=== PATIENT | male | born 1940 | race Caucasian/White ===

== ENCOUNTER → 2016-08-05 | Outpatient (CLI) | payer MEDICARE, OTHER ==
[~2016-08-05] MED LIST: ACETAMINOPHEN PO; ACID CONTROL150 M1 PO; ALBUTEROL 0.5ML INH; ALBUTEROL17 GM INH; ALDACTONE PO; ALDACTONE25 MG PO; ALLER-EASE180 MG PO; ALLERGY RELIEF10 M6 PO; ASPIRIN81 M2 PO; ASPIRIN81 MG PO; ATENOLOL25 MG PO; AZITHROMYCIN250 MG PO; BREO ELLIPTA 11 EACH INH; BREO ELLIPTA 21 EACH INH; CENTRUM COMPLE1 EACH PO; CLOPIDOGREL BIS75 MG PO; CLOPIDOGREL75 MG PO; COLESTIPOL HCL1 G PO; COREG3.125 MG PO; DEXAMETHASONE0.5 MG PO; DEXAMETHASONE0.75 MG PO; DEXAMETHASONE4 MG PO; DIFLUCAN100 MG PO; DIGOX250 MCG PO; DONEPEZIL HCL10 MG PO; DONEPEZIL HCL23 MG PO; ESCITALOPRAM OX10 MG PO; FUROSEMIDE40 MG PO; GLUCOPHAGE500 M1 PO; HUMIBID-LA600 MG PO; KLONOPIN1 MG PO; LEVOTHYROXINE25 MCG PO; LIPITOR40 MG PO; LISINOPRIL5 MG PO; LOPID600 MG PO; LORTAB 10-3251 EACH PO; MEGACE ES625 MG/5 M PO; MEGESTROL625 MG/5 M PO; METFORMIN HCL500 M3 PO; MONTELUKAST SOD10 MG PO; MULTI VITAMIN1 EACH PO; MULTI-VITAMIN1 EAC1 PO; NAMENDA XR28 MG PO; NICOTINE PATCH1 EAC1 TOP; ONDANSETRON HCL4 M1 PO; ONDANSETRON4 MG/TAB PO; PREDNISONE2.5 MG PO; PREDNISONE5 MG PO; RANITIDINE HCL150 M1 PO; SPIRIVA18 MCG INH; TENORMIN25 MG PO; TRIPLE OMEGA C400 MG PO; TYLENOL325 M1 PO; ZYRTEC10 M2 PO
--- NOTE | ~2016-08-05 | XA91 ---
[facility] A Service of [facility] & [facility] RADIOLOGY TEXT RESULTS PATIENT: GIANCARLO MEJIA LOCATION: CIVR : 41 UNIT #: [id number] AGE: [address]: Hossein Mednes MD SEX: M ORDER DR: [id number] [place] [id number] [facility]. [place], [place] [address] [id number] MR#: [id number] Acc #: [id number] NAME: GIANCARLO MEJIA : 1940 SEX: M STUDY DATE/TIME: 08/05/2016 8:48 UNIT: CIVR ROOM: STUDY DESCRIPTION: XA CVC Tunneled W Port Attending Physician: Hossein Mendes M.D. Ordering Physician: Hossein Mendes M.D. Primary Care Physician: Jon Damon M.D. MEDICAL IMAGING REPORT This report is preliminary unless electronic signature is present PROCEDURE Ultrasound and fluoroscopically guided placement of a chest port. INDICATIONS 75-year-old male with history of metastatic lung cancer. Chest port placement requested for chemotherapy. The fluoro time is 0.2 minutes. Reference air kerma 3 mGy. MEDICATIONS: 2 mg of Versed administered IV and 75 mcg of Fentanyl administered IV. Conscious sedation time monitored by appropriately credentialed radiology nursing staff. 1 g of Cefazolin was administered for antibiotic prophylaxis. The risks, benefits and alternative of the procedure were discussed with the patient and informed consent was obtained. In the procedure room a time-out was performed confirming correct patient and procedure. All elements maximum sterile-barrier technique utilized according guidelines appropriate for the procedure. TECHNIQUE/FINDINGS Ultrasound of the right internal jugular vein was performed. It was patent and compressible and images saved. Next, using full standard sterile barrier technique including sterile caps, gowns, gloves, mass, drapes, 2% Chlorhexidine for cutaneous anti sepsis, and hand hygiene the right internal jugular vein was punctured using a 21-gauge micropuncture needle. Next, under fluoroscopic guidance a peel-away sheath was advanced into the SVC. Next, a similar incision was made below the right clavicle. A subcutaneous pocket was created. The port was placed in the pocket and the catheter tubing was tunneled underneath the skin through the jugular dermatotomy site. The tubing was measured and cut to length and advanced through the sheath. The tip of the catheter is located at [facility]. [facility] A Service of [facility] RADIOLOGY TEXT RESULTS PATIENT: GIANCARLO MEJIA LOCATION: CIVR : 41 UNIT #: [id number] AGE: [address]: Hossein Mendes MD SEX: M ORDER DR: the cavoatrial junction in good position. A spot image was taken. The port pocket was closed using 3-0 Vicryl and Dermabond. The jugular dermatotomy site was closed using Dermabond. The port was flushed with heparinized saline. Patient tolerated the procedure well without immediate complications. IMPRESSION Technically successful ultrasound and fluoroscopically guided placement of a right internal jugular venous chest port. Dictated by... Tyrone Damon M.D. THIS IS AN ELECTRONICALLY VERIFIED REPORT Tyrone Damon M.D. at 08/05/2016 4:57 PM DEVIN/sophia TD: 08/05/2016 13:13 JOB #: [id number] MEDICAL IMAGING REPORT COPY
[2016-08-05 07:51] LABS: HEMATOCRIT 35.8 % (38.0-50.0); HEMOGLOBIN 12.1 gm/dL (13.0-16.0); MEAN CORPUSCULAR HGB CONC 33.6 g/dL (30-36); MEAN PLATELET VOLUME 7.6 FL (6.5-11.5); RED BLOOD COUNT 3.66 X10e (3.90-5.60); RED CELL DISTRIBUTION WIDTH 14.1 % (11.0-15.5); WHITE BLOOD COUNT 10.4 X10e3 (4.0-10.5)
[2016-08-05 08:04] LABS: INR 0.9; PARTIAL THROMBOPLASTIN TIME 25.2 SECONDS (23.5-31.3); PROTHROMBIN TIME (PATIENT) 9.7 SECONDS (9.6-11.5)
== END | disposition home or self-care (01) ==
LOC: CIVR 07:17
PROVIDERS: Internal Medicine Hematology & Oncology
PROC: 0JH63XZ Insertion of Tunneled Vascular Access Device into Chest Subcutaneous Tissue and Fascia, Percutaneous Approach (ICD-10-PCS; principal; 2016-08-05)
DX: Z45.2 Encounter for adjustment and management of vascular access device (principal); R91.1 Solitary pulmonary nodule; C34.11 Malignant neoplasm of upper lobe, right bronchus or lung; C79.71 Secondary malignant neoplasm of right adrenal gland; C79.31 Secondary malignant neoplasm of brain; I10 Essential (primary) hypertension; E11.9 Type 2 diabetes mellitus without complications; Z79.84 Long term (current) use of oral hypoglycemic drugs; G30.9 Alzheimer's disease, unspecified; F02.80 Dementia in other diseases classified elsewhere, unspecified severity, without behavioral disturbance, psychotic disturbance, mood disturbance, and anxiety; Z79.899 Other long term (current) drug therapy; I25.10 Atherosclerotic heart disease of native coronary artery without angina pectoris; Z95.1 Presence of aortocoronary bypass graft; Z98.61 Coronary angioplasty status; F17.200 Nicotine dependence, unspecified, uncomplicated; Z80.1 Family history of malignant neoplasm of trachea, bronchus and lung; Z80.0 Family history of malignant neoplasm of digestive organs
CPT/HCPCS: 36415; 76937; 77001; 82947; 85027; 85610; 85730; C1788; J0690; J1642; J2250; J3010

== ENCOUNTER → 2016-08-19 | Outpatient (CLI) | payer MEDICARE, OTHER ==
--- NOTE | ~2016-08-19 | US85 ---
[facility] A Service of [facility] RADIOLOGY TEXT RESULTS PATIENT: GIANCARLO MEJIA LOCATION: SNIV : 41 UNIT #: [id number] AGE: [address]: Hossein Mendes MD SEX: M ORDER DR: [id number] [place] [id number] P MR#: [id number] Acc #: [id number] NAME: GIANCARLO MEJIA : 1940 SEX: M STUDY DATE/TIME: 08/19/2016 12:50 UNIT: SNIV ROOM: STUDY DESCRIPTION: [facility] Attending Physician: Hossein Mendes M.D. Referring Physician: Hossein Mendes M.D. Ordering Physician: Hossein Mendes M.D. Primary Care Physician: Jon Damon M.D. MEDICAL IMAGING REPORT This report is preliminary unless electronic signature is present. EXAM Right leg vein Doppler ultrasound, 08/19. INDICATION Right flank pain for the last 1.5 weeks. TECHNIQUE Venous ultrasound examination of the right lower extremity was performed using grayscale, spectral Doppler and color flow Doppler imaging. FINDINGS The examination is negative. There is no evidence of right lower extremity deep venous thrombus from the groin to the lower calf. Visualized greater saphenous vein is also patent. IMPRESSION Negative examination. No evidence of right lower extremity deep venous thrombosis. Dictated by... Jon Arevalo Jr., M.D. THIS IS AN ELECTRONICALLY VERIFIED REPORT Jon Arevalo Jr., M.D. at 08/19/2016 4:49 PM WESTON/alexi TD: 08/19/2016 14:56 JOB #: [id number] MEDICAL IMAGING REPORT [facility] A Service of [facility] RADIOLOGY TEXT RESULTS PATIENT: GIANCARLO MEJIA LOCATION: SNIV : 41 UNIT #: [id number] AGE: [address]: Hossein Mendes MD SEX: M ORDER DR: Page 1 of 1
== END | disposition home or self-care (01) ==
LOC: SNIV 12:36
DX: M79.661 Pain in right lower leg (principal); C79.31 Secondary malignant neoplasm of brain; C34.11 Malignant neoplasm of upper lobe, right bronchus or lung; C79.71 Secondary malignant neoplasm of right adrenal gland; R91.1 Solitary pulmonary nodule
CPT/HCPCS: 93971

== ENCOUNTER 2016-08-26 16:30 | Inpatient (IN) | payer MEDICARE, OTHER ==
--- NOTE | ~2016-08-26 | HP ---
Unit #: [id number] #: [id number] Patient: GIANCARLO MEJIA [id number] [address] [place], [place] [address] [id number] MR#: [id number] NAME: GIANCARLO MEJIA ROOM: 236 Age: 75 Sex: M Admission Date: 08/26/2016 : 1940 Attending Physician: Elias Archuleta M.D. Primary Care Physician: Jon Damon M.D. HISTORY AND PHYSICAL CHIEF COMPLAINT Weakness, nausea, poor appetite x1 week HISTORY OF PRESENT ILLNESS Patient is a 75-year-old male recently diagnosed with lung cancer about six weeks ago, under the care of Dr. Mendes. He started EM cycles of radiation treatment and chemotherapy. He was seen today at Dr. Mendes's office who directly admitted him to the hospital after some IV rehydration. Dr. Mendes felt that patient was intravascularly depleted and may need to be rehydrated a little more. The patient denies any chest pain or headache or shortness of breath or difficulty breathing. He admits to nausea but no vomiting, states that he has lost his appetite and his taste buds. REVIEW OF SYSTEMS A complete 10-point review of systems has been done and pertinent positives noted above. PAST MEDICAL HISTORY Recent diagnosis of lung cancer, previous history of colon cancer about five years ago, status post partial colectomy, coronary artery disease, diabetes mellitus type 2. ALLERGIES No known drug allergies. PAST SURGICAL HISTORY Coronary artery bypass graft, partial colectomy and port placement. FAMILY HISTORY Family history is negative. MEDICATIONS Medications are not reconciled at this time but include Tylenol Arthritis two tablets b.i.d., clonidine, Plavix, Vytorin, ranitidine, spironolactone, aspirin, Lasix, metformin and Zyrtec. PHYSICAL EXAMINATION GENERAL: On examination he was comfortable, not in distress. VITAL SIGNS: Blood pressure 123/67, pulse 91, respiratory rate 18, temperature 98.3. HEENT: Pupils are equal and reactive to light and accommodation. He had some moist mucous membranes. Unit #: [id number] #: [id number] Patient: GIANCARLO MEJIA NECK: Neck was supple without thyroid. CHEST: Reduced breath sounds of lung bases posteriorly. CARDIOVASCULAR SYSTEM: First and second heart sounds only. ABDOMEN: Full. Moving with respiration. Soft. No palpable organomegaly. CENTRAL NERVOUS SYSTEM EXAM: Alert and oriented x3. Moved all the limbs spontaneously. Cranial nerves II-XII grossly intact. SKIN: Warm and dry with no rashes. LYMPHATIC SYSTEM: I could not appreciate any lymphadenopathy. DIAGNOSTIC STUDIES LABORATORY: He had chemistries, glucose of 160, BUN and creatinine 23 and 0.8, sodium and potassium 132 and 3.8, chloride of 98. He had CBC, WBC 5.7, hemoglobin and hematocrit 11.0 and 32.9, with a platelet count of 157. Urinalysis: Specific gravity 1.022, urobilinogen 1.0. ASSESSMENT AND PLAN 1. Mild dehydration: Will rehydrate patient with D5 half normal saline at 100 mL per hour. Encourage him to eat. Put him on Accu-Cheks q.a.c. and q.h.s. Put him on a low dose sliding scale at this time. 2. Diabetes mellitus type 2: Put him on Accu-Chek q.a.c. and q.h.s. Will see what his sugars trend and correct them as we go along. 3. Lung cancer: He is under the care of Dr. Mendes. Will consult with Dr. Mendes. 4. Coronary artery disease. This is currently stable at this time. No issues at this time. 5. GI prophylaxis/gastroesophageal reflux disease: Put him on Protonix 40 mg p.o. daily. Dictated by Susan Hogue/roc TD: 08/26/2016 19:38 JOB #: [id number] HISTORY AND PHYSICAL Page 1 of 1 X Elias Archuleta MD X HISTORY AND PHYSICAL
--- NOTE | ~2016-08-26 | A ---
[facility] Nutrition Therapy DATE: 08/27/16 Patient: GIANCARLO MEJIA Physician: THANH Address: [facility] VICENTA VILLARREAL Room/Bed: [address] [place] [address], Zip: [place] [address] Admit Date: 08/26/16 Date of : 41 Height: 6 2 Weight: 174 79.1 NUTRITIONAL ASSESSMENT: REASON: Consult 75 yo male admitted for dehydration, weakness, nausea, poor appetite x 1 wk PMH: lung cancer, CAD, DM, h/o colon cancer Anthropometrics: Ht: 6'2" Wt: 79.1 kg (174#) BMI: 22.3 Labs: Na+ 130, Glu 231, Ca++ 8.2, POC 258 Meds: D5%, Protonix, Novolog I/O & Bowel function: 480/626, last BM 08/27 Skin Integrity: Scar (mid chest), no edema noted Estimated Nutrition Needs: Increased d/t chemoradiation, wt loss Assessment: Chart reviewed, events noted. Pt recently diagnosed with lung cancer in 2016. Pt is currently receiving chemotherapy and radiation. RD internship visited with pt and pt's family. RD internship gave written and verbal oncology diet education. Pt's family reported recent wt loss of ~6# in 4 days. Pt reports taste changes, as pt states "everything tastes like sugar". Pt reported very little PO intake d/t taste changes and nausea. RD internship encouraged adequate intake and provided high-calorie, high-protein foods. RD internship discussed importance of calorie, protien, and fluid during treatment. RD internship encouraged Pepe smith d/t elevated blood glucose levels, pt agreed. Pt and pt's family asked questions, RD internship responded appropriately. See recommendations below. Dx: Inadequate protein-energy intake RT current clinical condition, taste changes, nausea AEB wt loss, pt and pt's family report above. Intervention: 1. Glucerna shakes QID 2. Consistent carb diet Monitoring, Evaluation and Goals: 1. PO intake; consume >75% of meals and supplements 2. Weight; prevent unintentional weight loss, promote weight gain 3. Labs; WNL: gluc [facility] Nutrition Therapy DATE: 08/27/16 Patient: GIANCARLO MEJIA Physician: THANH Address: [address] [place] [address] Room/Bed: [address] [place] [address], Zip: [place] [address] Admit Date: 08/26/16 Date of : [birth year] Height: 6 2 Weight: 174 79.1 Recommendations: 1. Order chocolate Glucerna shakes QID, d/c chocolate Ensure shakes QID. 2. Appreciate family and staff to encourage adequate intake. 3. Reconsult RD if further diet education requested. Pt is at a moderate nutritional risk. RD will f/u per protocol. Respectfully, Sarah Lane, [place] Ora Gonzalez MS, RD, LD [employer] and Nutrition[facility] Services [facility] cc: client file
--- NOTE | ~2016-08-26 | CO ---
Unit #: [id number] #: [id number] Patient: GIANCARLO MEJIA [id number] [address] [place], [place] [address] [id number] I MR#: [id number] NAME: GIANCARLO MEJIA ROOM: 236 Age: 75 Sex: M Admission Date: 08/26/2016 : 1940 Attending Physician: Elias Archuleta M.D. Primary Care Physician: Jon Damon M.D. Consultation Date: 08/27/2016 CONSULTATION REPORT REQUESTING PHYSICIAN Elias Archuleta M.D. REASON FOR CONSULTATION Metastatic lung cancer, dehydration, nausea, vomiting. HISTORY OF PRESENT ILLNESS Mr. Giancarlo Mejia is 75 years old with a history of metastatic nonsmall cell lung cancer, who underwent his first cycle of chemotherapy with carboplatin and Abraxane on August 21, 2016, following which he lost his appetite. Had eaten very poorly for five days and was seen in the office on August 26, 2016 and was clinically found to be dehydrated, very nauseous, and hospitalization was recommended. I spoke to Dr. Archuleta who graciously agreed to admit him. Mr. Mejia tells me that with IV fluids, nausea medications he feels slightly better but still extremely tired without much of an appetite. PAST MEDICAL HISTORY 1. History of coronary artery disease with angioplasty in 2004, followed by bypass surgery in 2007. 2. Type 2 diabetes. 3. Hypertension. 4. Alzheimer type dementia. 5. He was diagnosed with lung cancer on a screening CT scan on June 19, 2014, which revealed a 2.2 x 2.3 cm nodule in the right upper lobe near the hilum with multiple enlarged lymph nodes including right paratracheal and AP window nodes. PET CT scan revealed PET avid nodules on the parotid gland with MRI of the brain with at least 10 brain metastases. He underwent whole brain radiation therapy to the brain for which he was fatigued, followed there after by initiation of chemotherapy as mentioned above. PAST SURGICAL HISTORY 1. Colon resection. 2. Coronary artery bypass surgery. FAMILY HISTORY Gastrointestinal cancer in mother and now mother with lung cancer. SOCIAL HISTORY A 50-pack a day smoker, who still smokes a few cigarettes a day. Does not drink any alcohol. He is , lives with his and his two daughters. Unit #: [id number] #: [id number] Patient: GIANCARLO MEJIA REVIEW OF SYSTEMS A 14-point review of systems taken. CONSTITUTIONAL: Fatigue, weakness, decreased appetite. EYES: Negative. EARS, NOSE, MOUTH, THROAT: Negative. CARDIOVASCULAR: Negative. RESPIRATORY: Negative. GASTROINTESTINAL: Nausea and vomiting. No constipation. GENITOURINARY: Negative. NEUROLOGIC: Forgetfulness as manifestation of his dementia. PSYCHIATRIC: Negative. ENDOCRINE: Diabetic. ALLERGY/LYMPHATIC: Negative. SKIN: Negative. PHYSICAL EXAMINATION GENERAL: He is a pleasant elderly man in no distress. Awake, alert, oriented x3. VITAL SIGNS: Temperature 98.9, pulse rate 82, respiratory rate 18, blood pressure 133/55, O2 saturations 98% on room air. HEENT: Shows pupils equal, react well to light. Mild pallor. No icterus. Mucous membranes are dry. NECK: No adenopathy, JVD, thyromegaly. CARDIOVASCULAR: First and second heart sounds are heard. Regular with no murmurs, gallops, or rubs. LUNGS: Chest expansion symmetric. Bilateral equal air entry. Normal breath sounds. ABDOMEN: Soft, nontender. Bowel sounds are active. EXTREMITIES: Warm with good pulses. No edema, cyanosis, clubbing. NEUROLOGIC: He is awake, alert, oriented x3 without any focal findings. SKIN: Negative. LYMPHATIC: Negative. PSYCHIATRIC: Normal affect. DIAGNOSTIC STUDIES LABORATORY: CBC at admission showed a white count of 5.7, hemoglobin 11, platelet count 157,000. Complete metabolic panel shows sodium of 132, BUN 23, creatinine 0.8, glucose 160. UA is dark yellow with a specific gravity of 1.022, pH 6.5. ASSESSMENT AND PLAN Mr. Giancarlo Mejia is 75 years old with a history of coronary artery disease, type 2 diabetes mellitus with metastatic nonsmall cell lung cancer including brain metastasis admitted with anorexia, nausea, vomiting, and dehydration from the office. He is now marginally better with an improving hydration status but still decreased appetite and nausea on and off. I discussed with Mr. Mejia that plan will be to continue IV fluids, monitor electrolytes, control his blood sugars with plans to discharge home in the next one to two days. Discussed that we will hold his chemotherapy this week because of side effects and plan to give him his next weekly chemotherapy next week based upon symptoms and improvement by that point. 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 Thank you for allowing me to participate in his care and I will follow with you. Unit #: [id number] #: [id number] Patient: GIANCARLO MEJIA Dictated by... Susan Hewitt/margarita TD: 08/28/2016 15:39 JOB #: [id number] CONSULTATION REPORT Page 1 of 1 X Hossein Mendes MD X CONSULTATION REPORT
--- NOTE | ~2016-08-26 | DS ---
Unit #: [id number] #: [id number] Patient: GIANCARLO MEJIA [id number] [place], [place] [address] [id number] I MR#: [id number] NAME: GIANCARLO MEJIA ROOM: 236 Age: 75 Sex: M Admission Date: 08/26/2016 : 1940 Discharge Date: Attending Physician: Elias Archuleta M.D. Primary Care Physician: Jon Damon M.D. DISCHARGE SUMMARY REVISED REPORT FINAL DIAGNOSIS Mild dehydration. SECONDARY DIAGNOSES 1. Lung cancer. 2. Diabetes mellitus type 2. CONSULT Dr. Mendes. HOSPITAL COURSE The patient is a pleasant 75-year-old male with history of lung cancer, who is status post radiation treatment and got some chemotherapy. He was seen at Dr. Mendes's office and directly admitted on account of concerns for dehydration. He was rehydrated and his appetite has improved somewhat. He was evaluated and found suitable and stable for discharge and will be discharged in stable condition for outpatient followup with his PCP and primary oncologist, Dr. Mendes. DISCHARGE MEDICATIONS 1. Zofran ODT 4 mg p.o. q.4 hourly as needed. 2. Tylenol over the counter 650 mg p.o. q.4 hourly as needed. 3. Dexamethasone one tablet p.o. four times a day. 4. Glucophage 500 mcg p.o. daily. 5. Zyrtec 10 mg p.o. daily. 6. Colestipol 1 g p.o. b.i.d. as needed for diarrhea. 7. Klonopin 1 mg p.o. b.i.d. per home dose. 8. Coreg 3.125 mg p.o. b.i.d. 9. Atenolol 25 mg p.o. daily. 10. Digoxin 250 mg every morning. 11. Aricept 10 mg p.o. daily. 12. Breo Ellipta 100/25 mcg inhalation one inhalation daily. 13. Lasix 40 mg p.o. daily. 14. Lipitor 40 mg p.o. at bedtime. 15. Humibid LA 600 mg p.o. twice daily. 16. Zestril 5 mg p.o. every morning. 17. Ranitidine 150 mg p.o. b.i.d. 18. Multivitamin one tablet p.o. daily. 19. Aspirin 81 mg p.o. daily. 20. Plavix 75 mg p.o. daily. 21. Spironolactone 25 mg every morning. 22. Levothyroxine sodium 12.5 mcg every morning. Unit #: [id number] #: [id number] Patient: GIANCARLO MEJIA FOLLOWUP 1. He is scheduled to follow up with PCP in next three to five days. 2. Scheduled to follow up with Dr. Mendes in about one to two weeks, was scheduled by Dr. Mendes. 3. Will discharge him home with home health. Time spent coordinating discharge about 26 minutes. Dictated by... Susan Hogue TD: 08/28/2016 10:36 JOB #: [id number] DISCHARGE SUMMARY Page 1 of 1 X Elias Archuleta MD DISCHARGE SUMMARY
[~2016-08-26 16:30] MED LIST changes: -ACETAMINOPHEN PO; -ACID CONTROL150 M1 PO; -ALBUTEROL 0.5ML INH; -ALBUTEROL17 GM INH; -ALDACTONE PO; -ALLER-EASE180 MG PO; -ALLERGY RELIEF10 M6 PO; -ASPIRIN81 MG PO; -AZITHROMYCIN250 MG PO; -BREO ELLIPTA 11 EACH INH; -BREO ELLIPTA 21 EACH INH; -CENTRUM COMPLE1 EACH PO; -CLOPIDOGREL BIS75 MG PO; -COLESTIPOL HCL1 G PO; -COREG3.125 MG PO; -DEXAMETHASONE0.75 MG PO; -DEXAMETHASONE4 MG PO; -DIFLUCAN100 MG PO; -DONEPEZIL HCL10 MG PO; -ESCITALOPRAM OX10 MG PO; -GLUCOPHAGE500 M1 PO; -HUMIBID-LA600 MG PO; -LOPID600 MG PO; -LORTAB 10-3251 EACH PO; -MEGACE ES625 MG/5 M PO; -MEGESTROL625 MG/5 M PO; -METFORMIN HCL500 M3 PO; -MONTELUKAST SOD10 MG PO; -MULTI VITAMIN1 EACH PO; -NAMENDA XR28 MG PO; -NICOTINE PATCH1 EAC1 TOP; -ONDANSETRON HCL4 M1 PO; -ONDANSETRON4 MG/TAB PO; -PREDNISONE2.5 MG PO; -PREDNISONE5 MG PO; -SPIRIVA18 MCG INH; -TENORMIN25 MG PO; -TRIPLE OMEGA C400 MG PO; -TYLENOL325 M1 PO
[2016-08-26 17:19] LABS: HEMATOCRIT 32.9 % (38.0-50.0); MEAN CELL VOLUME 97.3 FL (83-96); MEAN CORPUSCULAR HEMOGLOBIN 32.7 PG (28-34); MEAN CORPUSCULAR HGB CONC 33.6 g/dL (30-36); MEAN PLATELET VOLUME 8.2 FL (6.5-11.5); RED BLOOD COUNT 3.38 X10e (3.90-5.60); RED CELL DISTRIBUTION WIDTH 13.6 % (11.0-15.5); WHITE BLOOD COUNT 5.7 X10e3 (4.0-10.5)
[2016-08-26 17:42] LABS: BUN/CREATININE RATIO 28.75; CALCIUM SERUM 8.5 mg/dL (8.4-10.2); CREATININE SERUM 0.8 mg/dL (0.6-1.4); POTASSIUM 3.8 mmol/L (3.5-5.1)
[2016-08-26 18:57] LABS: URINE APPEARANCE CLEAR; URINE BILIRUBIN NEG (NEG); URINE BLOOD NEG (NEG); URINE COLOR DK YELLOW; URINE GLUCOSE NEG (NEG); URINE KETONE NEG (NEG); URINE LEUKOCYTE ESTERASE NEG (NEG); URINE NITRATE NEG (NEG); URINE PH 6.5 (5-8); URINE PROTEIN NEG (NEG); URINE SPECIFIC GRAVITY 1.022 (1.003-1.035)
[2016-08-27] MEDS ORDERED: COLESTIPOL HCL1 G PO (10:54)
[2016-08-27] MEDS ORDERED: FUROSEMIDE40 MG PO (10:55)
[2016-08-27] MEDS ORDERED: GLUCOPHAGE500 M1 PO (10:56)
[2016-08-27] MEDS ORDERED: BREO ELLIPTA 11 EACH INH (10:58)
[2016-08-27] MEDS ORDERED: DEXAMETHASONE0.75 MG PO (10:59)
[2016-08-27] MEDS ORDERED: ONDANSETRON4 MG/TAB PO (11:28)
[2016-08-27] MEDS ORDERED: COREG3.125 MG PO (11:29)
[2016-08-27 14:27] LABS: HEMATOCRIT 27.7 % (38.0-50.0); HEMOGLOBIN 9.7 gm/dL (13.0-16.0); MEAN CORPUSCULAR HEMOGLOBIN 33.5 PG (28-34); MEAN PLATELET VOLUME 7.8 FL (6.5-11.5); RED BLOOD COUNT 2.89 X10e (3.90-5.60); RED CELL DISTRIBUTION WIDTH 13.1 % (11.0-15.5); WHITE BLOOD COUNT 3.9 X10e3 (4.0-10.5)
[2016-08-27 15:00] LABS: CALCIUM SERUM 8.2 mg/dL (8.4-10.2); GLOM FILT RATE Estimated 73.8 mL/min (>60)
[2016-08-28] MEDS ORDERED: ACETAMINOPHEN PO (11:08)
[2016-08-28] MEDS ORDERED: HUMIBID-LA600 MG PO (11:11)
[2016-09-24] MEDS ORDERED: BREO ELLIPTA 21 EACH INH (11:10)
[2016-09-24] MEDS ORDERED: DONEPEZIL HCL10 MG PO (11:12)
[2016-09-24] MEDS ORDERED: ALDACTONE PO (11:13)
[2016-09-24] MEDS ORDERED: RANITIDINE HCL150 M1 PO (11:14)
[2016-09-24] MEDS ORDERED: CLOPIDOGREL75 MG PO (11:15)
[2016-09-24] MEDS ORDERED: LEVOTHYROXINE25 MCG PO (11:16)
[2016-09-24] MEDS ORDERED: ALBUTEROL 0.5ML INH (11:19)
[2016-09-24] MEDS ORDERED: AZITHROMYCIN250 MG PO (11:20)
[2016-09-24] MEDS ORDERED: ALLER-EASE180 MG PO (11:21)
[2016-09-24] MEDS ORDERED: ESCITALOPRAM OX10 MG PO (11:21)
[2016-09-24] MEDS ORDERED: MEGESTROL625 MG/5 M PO (11:22)
[2016-09-24] MEDS ORDERED: LOPID600 MG PO (11:22)
[2016-09-24] MEDS ORDERED: MONTELUKAST SOD10 MG PO (11:23)
[2016-09-24] MEDS ORDERED: NAMENDA XR28 MG PO (11:25)
[2016-09-24] MEDS ORDERED: TRIPLE OMEGA C400 MG PO (11:26)
[2016-09-24] MEDS ORDERED: SPIRIVA18 MCG INH (11:26)
[2016-09-24] MEDS ORDERED: NICOTINE PATCH1 EAC1 TOP (11:26)
[2016-09-24] MEDS ORDERED: ALBUTEROL17 GM INH (11:27)
== END 2016-08-28 12:05 | disposition home health service (06) | DRG 641 ==
LOC: C2A 16:30
PROVIDERS: Family Medicine; Nurse Practitioner
DX: E86.0 Dehydration (principal); D61.818 Other pancytopenia; C79.51 Secondary malignant neoplasm of bone; C22.9 Malignant neoplasm of liver, not specified as primary or secondary; E11.9 Type 2 diabetes mellitus without complications; G30.9 Alzheimer's disease, unspecified; F02.81 Dementia in other diseases classified elsewhere, unspecified severity, with behavioral disturbance; F17.213 Nicotine dependence, cigarettes, with withdrawal; I25.10 Atherosclerotic heart disease of native coronary artery without angina pectoris; Z79.84 Long term (current) use of oral hypoglycemic drugs; Z79.82 Long term (current) use of aspirin; Z79.02 Long term (current) use of antithrombotics/antiplatelets; Z95.5 Presence of coronary angioplasty implant and graft; Z85.038 Personal history of other malignant neoplasm of large intestine
CPT/HCPCS: 80048; 81003; 82947; 85027; 94640; 94760; J1650; J1815

== ENCOUNTER → 2016-09-16 | Outpatient (CLI) | payer MEDICARE, OTHER ==
[~2016-09-16] MED LIST changes: +ACETAMINOPHEN PO; +ACID CONTROL150 M1 PO; +ALBUTEROL 0.5ML INH; +ALBUTEROL17 GM INH; +ALDACTONE PO; +ALLER-EASE180 MG PO; +ALLERGY RELIEF10 M6 PO; +ASPIRIN81 MG PO; +AZITHROMYCIN250 MG PO; +BREO ELLIPTA 11 EACH INH; +BREO ELLIPTA 21 EACH INH; +CENTRUM COMPLE1 EACH PO; +CLOPIDOGREL BIS75 MG PO; +COLESTIPOL HCL1 G PO; +COREG3.125 MG PO; +DEXAMETHASONE0.75 MG PO; +DEXAMETHASONE4 MG PO; +DIFLUCAN100 MG PO; +DONEPEZIL HCL10 MG PO; +ESCITALOPRAM OX10 MG PO; +GLUCOPHAGE500 M1 PO; +HUMIBID-LA600 MG PO; +LOPID600 MG PO; +LORTAB 10-3251 EACH PO; +MEGACE ES625 MG/5 M PO; +MEGESTROL625 MG/5 M PO; +METFORMIN HCL500 M3 PO; +MONTELUKAST SOD10 MG PO; +MULTI VITAMIN1 EACH PO; +NAMENDA XR28 MG PO; +NICOTINE PATCH1 EAC1 TOP; +ONDANSETRON HCL4 M1 PO; +ONDANSETRON4 MG/TAB PO; +PREDNISONE2.5 MG PO; +PREDNISONE5 MG PO; +SPIRIVA18 MCG INH; +TENORMIN25 MG PO; +TRIPLE OMEGA C400 MG PO; +TYLENOL325 M1 PO
--- NOTE | ~2016-09-16 | CT2 ---
[facility] A Service of [facility] & [facility] RADIOLOGY TEXT RESULTS PATIENT: GIANCARLO MEJIA LOCATION: CCAT : 41 UNIT #: [id number] AGE: [address]: Hossein Mendes MD SEX: M ORDER DR: [id number] [facility] [address] [facility]. [place], [place] [address] [id number] O MR#: [id number] Acc #: [id number] NAME: GIANCARLO MEJIA : 1940 SEX: M STUDY DATE/TIME: 09/16/2016 13:03 UNIT: CCAT ROOM: STUDY DESCRIPTION: CT Abd and Pelv W Cont Attending Physician: Hossein Mendes M.D. Referring Physician: Hossein Mendes M.D. Ordering Physician: Hossein Mendes M.D. Primary Care Physician: Jon Damon M.D. MEDICAL IMAGING REPORT This report is preliminary unless electronic signature is present EXAM CT abdomen and pelvis with contrast, 09/16/2016. HISTORY 75-year-old male with lung cancer, with metastatic disease to the right adrenal gland and brain. Observation for metastatic disease. Restaging. History of prior colon surgery. Diabetes. Hypertension. Cardiac disease. COMPARISON PET/CT 06/27/2016. PROCEDURE 5-mm axial images from the lung bases through the lesser trochanters after intravenous and enteric contrast administration. Sagittal coronal reformatted images were obtained. FINDINGS 3.0 x 2.0 cm heterogeneous right adrenal thickening consistent with appearance of metastatic disease, not thought to be significantly changed. No focal liver lesions are identified. Small gallstones are present without pericholecystic inflammation or biliary ductal dilation. There is a complex cystic lesion seen in the uncinate process of the spleen, measuring 4 mm AP x 1.6 cm craniocaudal x 2.2 cm transverse, best depicted on coronal reformatted images. There is mild prominence of the ventral pancreatic duct measuring up to 4 mm, but no obstructing etiology is seen. The dorsal duct caliber is within normal limits. Findings suggestive of pancreatic divisum configuration. No pathologic retroperitoneal or mesenteric adenopathy is seen. There is no ascites. Moderate atherosclerotic plaquing is seen within the infrarenal abdominal aorta. The infrarenal abdominal aorta is aneurysmal measuring nearly 3.[address] [facility] A Service of [facility] RADIOLOGY TEXT RESULTS PATIENT: GIANCARLO MEJIA LOCATION: [facility] : 41 UNIT #: [id number] AGE: [address]: Hossein Mendes MD SEX: M ORDER DR: ricky, not thought to be significant changed. Advanced calcific atherosclerosis in seen in the bilateral common iliac arteries. Mild irregular plaquing in the left external iliac artery. PELVIS: Urinary bladder, prostate, and rectum are within normal limits. Degenerative disc and endplate changes are present at L5-S1, but no suspicious osteolytic or osteoblastic abnormalities are identified. IMPRESSION 1. Abnormal right adrenal gland heterogeneous thickening, consistent with metastatic disease. This lesion was hypermetabolic on the previous PET/CT of 06/27/2016. It is not thought to be significant changed in size or morphology since 06/27/2016. 2. There is a complex cystic lesion within the uncinate process of the pancreas with questionable pancreatic divisum configuration. This lesion is best depicted on the coronal reformatted images. Based upon statistics, benign etiologies such at chronic pseudocyst or other benign pancreatic cystic neoplasm would be favored, and no abnormal FDG uptake was seen in this location on previous PET/CT. This can be further evaluated with CT abdomen without and with IV contrast, pancreatic protocol, it would aid in the patient's clinical management. Alternately, short-term CT surveillance imaging would be recommended. 3. Uncomplicated cholelithiasis. 4. Stable 3.5 cm infrarenal abdominal aneurysm. 5. CT chest performed on this same day has been dictated separately. Dictated by... Mar Armendariz M.D. THIS IS AN ELECTRONICALLY VERIFIED REPORT Mar Armendariz M.D. at 09/18/2016 8:31 AM Ann-Marie TD: 09/16/2016 16:35 JOB #: [id number] MEDICAL IMAGING REPORT Page 1 of 1 COPY
--- NOTE | ~2016-09-16 | CT55 ---
[facility] A Service of [facility] & [facility] RADIOLOGY TEXT RESULTS PATIENT: GIANCARLO MEJIA LOCATION: [facility] : 41 UNIT #: [id number] AGE: [address]: Hossein Mendes MD SEX: M ORDER DR: [id number] [facility] [address] [place], [place] [address] [id number] O MR#: [id number] Acc #: [id number] NAME: GIANCARLO MEJIA : 1940 SEX: M STUDY DATE/TIME: 09/16/2016 13:03 [facility] RO[facility]: STUDY DESCRIPTION: CT Chest W Con Attending Physician: Hossein Mendes M.D. Referring Physician: Hossein Mendes M.D. Ordering Physician: Hossein Mendes M.D. Primary Care Physician: Jon Damon M.D. 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 History of chemo and radiation therapy. Observation for suspected malignant neoplasm. COMPARISON PET/CT 06/27/[address] chest 06/19/2016. TECHNIQUE This CT examination was performed with one or more of the following radiation dose reduction techniques: automatic exposure control, adjustment of mA and/or kV according to patient size, and iterative reconstruction. FINDINGS Images through the thoracic inlet demonstrate a right-sided port catheter with tip in the upper right atrium. The thyroid gland is normal. There are small superior mediastinal, right paratracheal and middle mediastinal lymph nodes present. Superior mediastinal node measures 9 mm previously 10 mm likely unchanged. Right paratracheal node measures 2.2 cm previously 1.8 cm. Cluster of AP window nodes measures 2.4 x 1.4 cm previously 2.6 x 1.5 cm. Small subcarinal node measures 1.2 cm previously 1.2 cm. Previous right upper lobe irregularly marginated soft tissue nodule likely the patient's primary lung carcinoma has decreased in size. There is a residual 1.3 x 1 cm nodule which previously measured 2.4 x 2 cm. There are 2 tiny micronodules in the right upper lobe unchanged and likely benign. There are trace areas of pleural thickening in the anterior right upper chest unchanged. There is no pleural fluid. There is some linear atelectasis or scar at the left base which is stable. No STS. [facility] A Service of [facility] RADIOLOGY TEXT RESULTS PATIENT: GIANCARLO MEJIA LOCATION: [facility] : 41 UNIT #: [id number] AGE: [address]: Hossein Mendes MD SEX: M ORDER DR: suspicious left-sided nodules are seen. There are no effusions. Coronary artery calcifications are present. Aorta is unchanged. There is CABG change. Limited views through the upper abdomen demonstrate no liver lesion. The left adrenal gland is normal. There is mild thickening of the right adrenal gland which measures up to 1.6 cm. Previous 2 cm nodule is not detectable. Bone window images demonstrate no lytic or blastic lesions. IMPRESSION 1. Significant interval reduction in the right upper lobe nodule now measuring 1.3 x 1 cm previously 2.4 x 2 cm. There are small superior mediastinal, right paratracheal and middle mediastinal lymph nodes which measure similar to the prior study. A few measure a few millimeters smaller and a few measure a few millimeters larger likely no change. 2. There are a few tiny noncalcified nodules in the right upper lobe with minimal pleural thickening in the right upper lobe unchanged. There is no pleural effusion. 3. There is residual thickening of the right adrenal gland measuring up to 1.6 cm transverse. The previous discrete 2 cm nodule is not detectable on this exam. Dictated by... Inés Rawls M.D. THIS IS AN ELECTRONICALLY VERIFIED REPORT Inés Rawls M.D. at 09/17/2016 7:01 PM ROSALIE/karin TD: 09/17/2016 13:19 JOB #: [id number] MEDICAL IMAGING REPORT Page 1 of 1 COPY
== END | disposition home or self-care (01) ==
LOC: CCAT 11:40
DX: C79.31 Secondary malignant neoplasm of brain (principal); R91.1 Solitary pulmonary nodule; C34.11 Malignant neoplasm of upper lobe, right bronchus or lung
CPT/HCPCS: 71260; 74177; J1642; Q9967

== ENCOUNTER 2016-09-24 12:02 | Emergency (ER) | payer MEDICARE, OTHER ==
--- NOTE | ~2016-09-24 | CT71 ---
[facility] A Service of [facility] & [facility] RADIOLOGY TEXT RESULTS PATIENT: GIANCARLO MEJIA LOCATION: [facility] : 41 UNIT #: [id number] AGE: [address]: Jean Claude Madrigal MD SEX: M ORDER DR: [id number] [facility] [address] [place], [place] [address] [id number] E MR#: [id number] Acc #: [id number] NAME: GIANCARLO MEJIA : 1940 SEX: M STUDY DATE/TIME: 09/24/2016 11:29 UNIT: [facility] ROOM: STUDY DESCRIPTION: CT Head Wo Contrast Attending Physician: Jean Claude Madrigal M.D. Ordering Physician: Jean Claude Madrigal M.D. Primary Care Physician: Jon Damon M.D. MEDICAL IMAGING REPORT This report is preliminary unless electronic signature is present EXAM CT head 09/24/2016 HISTORY Syncopal episode on today laceration hit to top of head no pain posterior neck pain today on blood thinners. Respiratory DMHTN thyroid liver panc gastro lung brain OA cardiac stents CABG. Partial colostomy. TECHNIQUE This CT exam was performed with one or more of the following radiation dose reduction techniques: automatic control, adjustment of mA and/or kV according to patient size, and iterative reconstruction. FINDINGS CT head performed skull base through vertex without intravenous contrast. Comparison to MRI brain 07/09/2016. Prior examination showed multiple metastatic lesions in brain. On current study no acute brainstem abnormality is seen. No intracranial hemorrhage. No indication of acute cortical ischemia. The midline structures are nondisplaced and the basal ganglia are intact. The ventricles, cisterns and sulci show stable mild generalized enlargement consistent with mild generalized atrophy. No intra or extraaxial mass effect is identified. There is no compelling evidence of vasogenic edema. Findings may reflect interval response to therapy with decreased conspicuity of intraaxial metastatic lesions. It is possible that the lesions may be relatively inconspicuous in general on CT. Metastatic disease is best further evaluated with repeat MRI. Extensive atherosclerotic arterial calcifications in the cavernous carotid and vertebral arteries. The intraorbital soft tissues are unremarkable. Visualized paranasal sinuses show mucosal thickening or mucous retention cyst in the right frontal sinus. Small air-fluid levels in bilateral mastoid air cells suggesting mild bilateral mastoiditis. No fracture. IMPRESSION STS. [facility] A Service of [facility] RADIOLOGY TEXT RESULTS PATIENT: GIANCARLO MEJIA LOCATION: [facility] : 41 UNIT #: [id number] AGE: [address]: Jean Claude Madrigal MD SEX: M ORDER DR: 1. No acute appearing abnormality is seen within the brain. 2. MRI in June 2016 showed multifocal intraaxial metastatic lesions not readily evident on today's examination. This could be a reflection of interval response to treatment. It may in part be related to relative lack of conspicuity of the metastatic lesions on noncontrast enhanced CT versus prior contrast-enhanced MRI. If reassessment of the patient's intracranial metastatic disease is a clinical concern at this time, I would recommend repeat contrast-enhanced MRI if the patient remains a candidate. No fracture. 3. Small air-fluid levels bilateral mastoid air cells suggesting mild bilateral acute mastoiditis. 4. Mucous retention cyst or mucosal thickening in the left frontal sinus. Dictated by... Niall Hand M.D. THIS IS AN ELECTRONICALLY VERIFIED REPORT Niall Hand M.D. at 09/25/2016 6:26 PM KRISTINE/dinora TD: 09/24/2016 13:03 JOB #: [id number] MEDICAL IMAGING REPORT Page 1 of 1 COPY
--- NOTE | ~2016-09-24 | CT52 ---
[facility] A Service of [facility] & [facility] RADIOLOGY TEXT RESULTS PATIENT: GIANCARLO MEJIA LOCATION: [facility] : 41 UNIT #: [id number] AGE: [address]: Jean Claude Madrigal MD SEX: M ORDER DR: [id number] [facility] [address] [place], [place] [address] [id number] E MR#: [id number] Acc #: [id number] NAME: GIANCARLO MEJIA : 1940 SEX: M STUDY DATE/TIME: 09/24/2016 11:29 UNIT: [facility] ROOM: STUDY DESCRIPTION: CT Cervical Spine Wo Cont Attending Physician: Jean Claude Madrigal M.D. Ordering Physician: Jean Claude Madrigal M.D. Primary Care Physician: Jon Damon M.D. MEDICAL IMAGING REPORT This report is preliminary unless electronic signature is present EXAM CT cervical spine 09/24/2016 HISTORY Syncopal episode at home. Laceration to right face on blood thinners hypertension, hit top of head. No pain. Posterior neck pain today. TECHNIQUE This CT exam was performed with one or more of the following radiation dose reduction techniques: automatic control, adjustment of mA and/or kV according to patient size, and iterative reconstruction. FINDINGS CT cervical spine performed. Bone soft tissue windows reviewed. Sagittal coronal reconstructions performed. Visualized portions of brain unremarkable. Visualized mastoid air cells show small air-fluid levels in the bilateral mastoid air cells suggesting mild acute bilateral mastoiditis. The visualized nasopharyngeal oropharyngeal, pharyngeal mucosal retropharyngeal spaces larynx subglottic airway superior mediastinum lung apices clear. Incompletely visualized central venous catheter from right internal jugular approach extending into the superior vena cava. Atherosclerotic arterial calcifications at the carotid bifurcations. Consider assessment with carotid ultrasound. No cervical adenopathy. No traumatic appearing cervical soft tissue abnormality. Mild dextroscoliosis of the cervical spine. Alignment in lateral projection appears within normal limits. No indication of traumatic malalignment. No fracture. Multilevel degenerative changes in the spine. Chronic soft tissue calcification posterior nuchal ligament. C2 - C3: Minimal posterior disc osteophyte complex. Mild central spinal canal narrowing. No cord compression. Neural foramina patent without evidence of exiting nerve impingement. [facility] A Service of [facility] & [facility] RADIOLOGY TEXT RESULTS PATIENT: GIANCARLO MEJIA LOCATION: [facility] : 41 UNIT #: [id number] AGE: [address]: Jean Claude Madrigal MD SEX: M ORDER DR: C3 - C4: Moderate posterior concentric disc osteophyte complex. Mild to mild/moderate central mild spinal canal narrowing. Anterior cord contact with effacement of anterior cord contour. Associated uncovertebral degenerative changes. Moderate to marked bilateral foraminal narrowing. Bilateral exiting nerve irritation is a consideration. C4 - C5: Posterior concentric disc osteophyte complex. Mild to mild/moderate central spinal canal narrowing with anterior cord contacting and effacement of anterior cord contour. Uncovertebral degenerative changes with mild to moderate right foraminal narrowing and marked left foraminal narrowing. Exiting nerve irritation or ame impingement is a consideration bilaterally. C5 - C6: Posterior disc osteophyte complex. Narrowing anterior thecal space. Probable anterior cord contact. No definite cord compression. Mild central spinal canal narrowing. The neural foramina show mild bilateral narrowing secondary to uncovertebral degenerative change. C6 - C7. Posterior concentric disc osteophyte complex more pronounced in the left paracentral region and extending to the bilateral uncovertebral joints more pronounced on right than left. Mild spinal canal narrowing. No cord compression. Narrowing of the right lateral recess. Marked narrowing of the bilateral neural foramina right greater than left. Bilateral exiting nerve irritation or ame impingement is a consideration. C7 - T1, T1 - T2, T2 - T3, T3 - T4: No significant disc bulge or herniation. Spinal canal diameter normal. Neural foramina patent without evidence of exiting nerve impingement. Vertebral body heights normal. Marked intervertebral disc space narrowing at discs from C3 - C4-= through C6 - C7. IMPRESSION 1. No traumatic fracture or malalignment. 2. Mild dextroscoliosis of the cervical spine. This may be in part positional in nature. 3. Multilevel severe intervertebral disc degenerative change. Multilevel posterior disc osteophyte complexes with multilevel [id number] central spinal canal narrowing from the C3 - C4 through C6 - C7 levels with multilevel cord contact and effacement of anterior cord contour. These findings are felt to be chronic in time course. Please see [id number] descriptions in body of report above. 4. Multilevel foraminal narrowing with multilevel possible exiting nerve irritation or ame impingement due to facet and uncovertebral joint degenerative changes. [facility] A Service of [facility] & [facility] RADIOLOGY TEXT RESULTS PATIENT: GIANCARLO MEJIA LOCATION: [facility] : 41 UNIT #: [id number] AGE: [address]: Jean Claude Madrigal MD SEX: M ORDER DR: 5. Atherosclerotic arterial calcifications at carotid bifurcations. Consider further evaluation with carotid ultrasound when clinically appropriate for the patient. 6. No traumatic appearing paraspinal soft tissue abnormality. 7. Small air-fluid levels bilateral mastoid air cells suggesting mild acute bilateral mastoiditis. Dictated by... Niall Hand M.D. THIS IS AN ELECTRONICALLY VERIFIED REPORT Niall Hand M.D. at 09/25/2016 6:26 PM KRISTINE/dinora TD: 09/24/2016 13:19 JOB #: [id number] MEDICAL IMAGING REPORT Page 1 of 1 COPY
--- NOTE | ~2016-09-24 | EKG ---
PATIENT: GIANCARLO MEJIA UNIT #: [id number] Ventricular Rate: 56 BPM Atrial Rate: 56 BPM P-R Interval: 194 ms QRS Duration: 90 ms Q-T Interval: 410 ms QTC Calculation(Bezet): 395 ms P [place]: 80 degrees Calculated R [place]: 69 degrees Calculated T [place]: 72 degrees Diagnosis Line: Sinus bradycardia Diagnosis Line: Otherwise normal ECG Diagnosis Line: No previous ECGs available Diagnosis Line: Confirmed by KIKI ALICEA MD ([id number]) on Diagnosis Line: 09/25/2016 3:39:28 PM INTERPRETING MD: CARLOZ
--- NOTE | ~2016-09-24 | CR72 ---
[facility] A Service of [facility] & [facility] RADIOLOGY TEXT RESULTS PATIENT: GIANCARLO MEJIA LOCATION: [facility] : 41 UNIT #: [id number] AGE: [address]: Jean Claude Madrigal MD SEX: M ORDER DR: [id number] [facility] [address] [place], [place] [address] [id number] E MR#: [id number] Acc #: [id number] NAME: GIANCARLO MEJIA : 1940 SEX: M STUDY DATE/TIME: 09/24/2016 11:06 UNIT: [facility] ROOM: STUDY DESCRIPTION: CR Chest Single View Portable Attending Physician: Jean Claude Madrigal M.D. Ordering Physician: Jean Claude Madrigal M.D. Primary Care Physician: Jon Damon M.D. MEDICAL IMAGING REPORT This report is preliminary unless electronic signature is present EXAM Portable chest x-ray 09/24/2016 HISTORY Syncopal episode today. Patient fell. Prior history of lung cancer. Smoker 50+ years. Diabetes. COMPARISON Chest radiograph 09/05/[address] 09/16/2016. FINDINGS Right-side chest port unchanged. Status post median sternotomy and CABG. Heart normal in size. Lungs hyperinflated consistent with underlying COPD. No evidence of acute infectious or inflammatory disease. No pleural effusion or pneumothorax. Previously described right upper lobe nodule on CT examination not evident on current plain radiograph. Best followed with CT. No new pulmonary nodules are suggested. Dictated by... Niall Hand M.D. THIS IS AN ELECTRONICALLY VERIFIED REPORT Niall Hand M.D. at 09/25/2016 6:26 PM Betty TD: 09/24/2016 12:19 JOB #: [id number] MEDICAL IMAGING REPORT Page 1 of 1 COPY
--- NOTE | ~2016-09-24 | CR151 ---
[facility] A Service of [facility] & [facility] RADIOLOGY TEXT RESULTS PATIENT: GIANCARLO MEJIA LOCATION: [facility] : 41 UNIT #: [id number] AGE: [address]: Jean Claude Madrigal MD SEX: M ORDER DR: [id number] [facility] [address] [place], [place] [address] [id number] E MR#: [id number] Acc #: [id number] NAME: GIANCARLO MEJIA : 1940 SEX: M STUDY DATE/TIME: 09/24/2016 UNIT: [facility] ROOM: STUDY DESCRIPTION: CR Hip Min 2 Views Rt Attending Physician: Jean Claude Madrigal M.D. Ordering Physician: Jean Claude Madrigal M.D. Primary Care Physician: Jon Damon M.D. MEDICAL IMAGING REPORT This report is preliminary unless electronic signature is present EXAM Right hip 2 views 09/24/2016 1355 hours HISTORY Patient fell this morning complaining of right hip pain. COMPARISON CT abdomen and pelvis 09/16/2016 FINDINGS AP pelvis and frog lateral view right hip demonstrate overall normal bone density. Hip joint spaces are normal. There is no fracture or dislocation. Stable degenerative changes in the lumbar spine. IMPRESSION Negative pelvis and right hip. No fracture seen. Degenerative changes are present at L4-L5 and L5-S1. Dictated by... Inés Rawls M.D. THIS IS AN ELECTRONICALLY VERIFIED REPORT Inés Rawls M.D. at 09/25/2016 2:31 PM ROSALIE/stephon TD: 09/24/2016 14:48 JOB #: [id number] MEDICAL IMAGING REPORT Page 1 of 1 COPY
[2016-09-24 11:08] LABS: BASOPHIL% 0.4 % (0-2.5); EOSINOPHIL% 0.2 % (0.0-7.0); HEMATOCRIT 32.7 % (38.0-50.0); HEMOGLOBIN 10.7 gm/dL (13.0-16.0); LYMPHOCYTE# 2.2 X10e3 (1.0-3.5); LYMPHOCYTE% 18.4 % (17.0-45.0); MEAN CELL VOLUME 99.7 FL (83-96); MEAN CORPUSCULAR HEMOGLOBIN 32.7 PG (28-34); MEAN CORPUSCULAR HGB CONC 32.8 g/dL (30-36); MEAN PLATELET VOLUME 7.2 FL (6.5-11.5); MONOCYTE# 1.2 X10e3 (0-1.0); MONOCYTE% 9.8 % (3.0-12.0); NEUTROPHIL# 8.6 X10e3 (1.5-7.1); NEUTROPHIL% 71.2 % (40-75); PLATELET COUNT 224 X10e3 (140-420); RED BLOOD COUNT 3.28 X10e (3.90-5.60); RED CELL DISTRIBUTION WIDTH 15.7 % (11.0-15.5); WHITE BLOOD COUNT 12.2 X10e3 (4.0-10.5)
[2016-09-24 11:10] LABS: DIFF IND NO
[2016-09-24 11:31] LABS: INR 0.9; PARTIAL THROMBOPLASTIN TIME 25.6 SECONDS (23.5-31.3); PROTHROMBIN TIME (PATIENT) 9.9 SECONDS (9.6-11.5)
[2016-09-24 11:38] LABS: ALBUMIN SERUM 3.3 g/dL (3.5-5.0); BILIRUBIN, DIRECT 0.1 mg/dL (0.0-0.2); BILIRUBIN,INDIRECT 0.3 mg/dL (0.0-0.9); BILIRUBIN,TOTAL 0.4 mg/dL (0.2-2.0); CALCIUM SERUM 9.1 mg/dL (8.4-10.2); CREATININE SERUM 0.6 mg/dL (0.6-1.4); GLOM FILT RATE Estimated 99.1 mL/min (>60); POTASSIUM 3.7 mmol/L (3.5-5.1); PROTEIN TOTAL SERUM 5.9 g/dL (6.0-8.3)
[~2016-09-24 12:02] MED LIST changes: -ACID CONTROL150 M1 PO; -ALLERGY RELIEF10 M6 PO; -ASPIRIN81 MG PO; -CENTRUM COMPLE1 EACH PO; -CLOPIDOGREL BIS75 MG PO; -DEXAMETHASONE4 MG PO; -DIFLUCAN100 MG PO; -LORTAB 10-3251 EACH PO; -MEGACE ES625 MG/5 M PO; -METFORMIN HCL500 M3 PO; -MULTI VITAMIN1 EACH PO; -ONDANSETRON HCL4 M1 PO; -PREDNISONE2.5 MG PO; -PREDNISONE5 MG PO; -TENORMIN25 MG PO; -TYLENOL325 M1 PO
== END 2016-09-24 15:10 | disposition home or self-care (01) ==
LOC: CED 12:02
PROVIDERS: Emergency Medicine
DX: S41.111A Laceration without foreign body of right upper arm, initial encounter (principal); S70.01XA Contusion of right hip, initial encounter; R55 Syncope and collapse; I10 Essential (primary) hypertension; Z79.899 Other long term (current) drug therapy; X58.XXXA Exposure to other specified factors, initial encounter; Y92.009 Unspecified place in unspecified non-institutional (private) residence as the place of occurrence of the external cause
CPT/HCPCS: 29125; 70450; 71010; 72125; 73502; 80048; 80076; 82947; 85025; 85610; 85730; 93005; 99284

== ENCOUNTER 2016-10-19 14:42 | Observation (INO) | payer MEDICARE, OTHER ==
--- NOTE | ~2016-10-19 | CR213 ---
[facility] A Service of [facility] & [facility] RADIOLOGY TEXT RESULTS PATIENT: GIANCARLO MEJIA LOCATION: [facility] : 41 UNIT #: [id number] AGE: [address]: Migue Thomas MD SEX: M ORDER DR: [id number] [facility] [address] [place], [place] [address] [id number] MR#: [id number] Acc #: [id number] NAME: GIANCARLO MEJIA : 1940 SEX: M STUDY DATE/TIME: 10/20/2016 17:30 UNIT: [facility] ROOM: [facility] STUDY DESCRIPTION: CR Ribs Unilateral 2 View Rt Attending Physician: Migue Thomas M.D. Ordering Physician: Elis Reyna M.D. Primary Care Physician: Jon Damon M.D. MEDICAL IMAGING REPORT This report is preliminary unless electronic signature is present EXAM Chest and right ribs, 10/20/2016 INDICATION Right side chest and rib pain after falling on bathroom floor Friday of this week. FINDINGS PA chest x-ray was obtained in addition to a right rib series. Comparison made with a chest x-ray obtained yesterday. Cardiac and mediastinal contours are stable. There is emphysema with chronic scarring at the left base. No pneumothorax. No rib fractures are identified. IMPRESSION No active disease. No rib fractures or pneumothorax identified. Dictated by... Jon Arevalo Jr., M.D. THIS IS AN ELECTRONICALLY VERIFIED REPORT Jon Arevalo Jr., M.D. at 10/21/2016 8:46 PM WESTON/love TD: 10/21/2016 03:03 JOB #: [id number] MEDICAL IMAGING REPORT Page 1 of 1 COPY
--- NOTE | ~2016-10-19 | HP ---
Unit #: [id number] #: [id number] Patient: GIANCARLO MEJIA [id number] [facility]. [place], [place] [address] [id number] MR#: [id number] NAME: GIANCARLO MEJIA ROOM: Age: 76 Sex: M Admission Date: 10/19/2016 : 1940 Attending Physician: Eloy Morel M.D. Primary Care Physician: Jon Damon M.D. HISTORY AND PHYSICAL CHIEF COMPLAINT Syncopal episode. 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 History is obtained from chart review and discussion with ER staff, as well as from the patient's and the patient. The patient has had at least a one week history of frequent falls. His last fall was today. He was walking in his house with his walker and collapsed. He had loss of consciousness. He hit his head. He was in his usual state of health. He has not had any fever. He has a cough at baseline. He has not complained of any chest or abdominal pain. He has been eating. There has been no vomiting or diarrhea. Of note, the patient was seen at [facility] emergency department on 10/15/2016 for the same problem. He declined admission at that time. In the emergency department today, a CT of the head was done and showed nothing acute. CT of the cervical spine showed nothing acute. Chest x-ray showed nothing acute. The patient had an MRI of the brain with and without contrast on 07/09/2016 that showed more than ten enhancing masses in the brain concerning for metastatic disease. The patient received 13 radiation treatments per the family with the last being in July 2016. He also has been receiving chemo with the last chemotherapy in 08/2016. He is followed by Dr. Mendes. He was scheduled to have a followup MRI this week. He is being admitted to [facility] for evaluation and further treatment. PAST MEDICAL HISTORY 1. Admission to [facility] 08/26/2016 for dehydration. 2. Non-small cell lung cancer with brain metastasis followed by Dr. Mendes, status post chemotherapy and radiation. 3. Diabetes. 4. Coronary artery disease, status post coronary artery bypass grafting. 5. Hypertension. 6. Hyperlipidemia. 7. Colon cancer, status post partial colectomy. PAST SURGICAL HISTORY Unit #: [id number] #: [id number] Patient: GIANCARLO MEJIA 1. Partial colectomy. 2. Coronary artery bypass grafting. 3. Cataract surgery. 4. Port placement. SOCIAL HISTORY The patient lives with his . He continues to smoke. He walks with a walker. His code status is a Do Not Resuscitate. FAMILY HISTORY Notable for his mother having lung cancer. ALLERGIES No known allergies. HOME MEDICATIONS Diflucan 100 mg every other day; donepezil 10 mg daily; ondansetron 4 mg q.4 hours p.r.n.; Tenormin 25 mg daily; digoxin 250 mcg daily; clopidogrel 75 mg daily; ranitidine 150 mg twice daily; aspirin 81 mg daily; metformin 500 mg twice daily; cetirizine 10 mg daily; dexamethasone 4 mg twice daily 2 tablets after chemotherapy for two days; Klonopin 1 mg twice daily p.r.n.; Lipitor 40 mg daily; centrum multivitamin daily. REVIEW OF SYSTEMS A complete review of systems is negative except as indicated in the HPI. The patient's states that he is typically oriented x3. PHYSICAL EXAMINATION VITAL SIGNS: Temperature is 98.5, pulse 54, respirations 21, blood pressure 118/61, oxygen saturation is 98% on room air. GENERAL: The patient is a male who is sleeping but wakes to voice. HEENT: The head is atraumatic. Mucous membranes are moist. NECK: Supple. Trachea is midline. CARDIOVASCULAR: Regular rate and rhythm. LUNGS: Demonstrate a few scattered rhonchi. Breathing is not labored with conversation. ABDOMEN: Soft and nontender with bowel sounds present in all four quadrants. EXTREMITIES: Nontender with no pedal edema. NEUROLOGIC: The patient is awake and alert. He is oriented x3. He follows commands. Ctmkxq-zs-cqyk is slow but intact. Rapid alternating movements again slow but intact. Gait was not assessed. There is no appreciable pronator drift. PSYCH: Mood and affect are normal. The patient is cooperative. SKIN: Skin of examined areas is warm and dry. DIAGNOSTIC STUDIES CARDIOLOGY STUDIES: EKG shows sinus bradycardia with a rate of 54 BPM. IMAGING STUDIES: CT of the head shows nothing acute. CT of the cervical spine shows nothing acute. Chest x-ray shows nothing acute. MRI: MRI of the brain with and without contrast from 07/09/2016 showed more than 10 lesions concerning for metastatic disease. Unit #: [id number] #: [id number] Patient: GIANCARLO MEJIA LABORATORY STUDIES: Complete blood count notable for white blood cell count of 10.9, hemoglobin and hematocrit 12.3 and 37.4 respectively. INR is 1. Comprehensive metabolic panel notable for a glucose of 127, ALT is 51, albumin 3.4. Digoxin level is 0.4. ASSESSMENT The patient is a 76-year-old male with: 1. Syncope. 2. Frequent falls. 3. Non-small cell lung cancer with known brain metastasis, status post radiation and chemotherapy. 4. Dementia. 5. Diabetes. 6. Coronary artery disease, status post coronary artery bypass grafting. 7. Colon cancer, status post partial colectomy. 8. Hypertension. 9. Hyperlipidemia. 10. Tobacco abuse. PLAN 1. Admitted for observation to intermediate level. 2. Healthy heart consistent carb diet if passes bedside swallow. 3. Bedrest. 4. Fall precautions. 5. Serial cardiac enzymes. 6. Monitor heart rate closely. 7. MRI of the brain with and without contrast for further evaluation of brain metastasis. 8. Neuro checks. 9. Consult Dr. Mendes regarding lung cancer with brain mets. 10. PT and OT to evaluate and treat. 11. Low dose sliding scale insulin with Accu-checks. 12. SCDs for DVT for prophylaxis. 13. Repeat labs in the morning. 14. Regarding code status, the patient is a Do Not Resuscitate. Dictated by Susan Sanabria/miri TD: 10/19/2016 18:52 JOB #: [id number] HISTORY AND PHYSICAL Page 1 of 1 X Elis Reyna MD X HISTORY AND PHYSICAL
--- NOTE | ~2016-10-19 | MR17 ---
[facility] A Service of [facility] & [facility] RADIOLOGY TEXT RESULTS PATIENT: GIANCARLO MEJIA LOCATION: C5B 560-01 : [birth year] UNIT #: [id number] AGE: [address]: Migue Thomas MD SEX: M ORDER DR: [id number] [facility] [address] [place], [place] [address] [id number] I MR#: [id number] Acc #: [id number] NAME: GIANCARLO MEJIA : 1940 SEX: M STUDY DATE/TIME: 10/20/2016 4:06 UNIT: [facility] ROOM: [facility] STUDY DESCRIPTION: MR Brain WWo Contrast Attending Physician: Migue Thomas M.D. Ordering Physician: Elis Reyna M.D. Primary Care Physician: Jon Damon M.D. MRI CENTER REPORT This report is preliminary unless electronic signature is present. EXAM MRI of the brain with and without contrast dated 10/20/2016 COMPARISON MRI of the brain with and without contrast dated 07/09/2016 HISTORY Multiple falls at home with one 10/19/2016. The patient's states that he blacked out and then fell. Slight facial droop on the left side. No abnormality involving the arms or legs. Syncope. FINDINGS Multisequence multiplanar imaging of the brain was obtained with and without contrast. GFR measured greater than 60. 14 mL of MultiHance was administered intravenously. No acute stroke, space-occupying intracranial mass, mass effect, midline shift or hydrocephalus. Scattered hyperintense T2-signal lesions are noted in the white matter both in the subcortical and periventricular region, brainstem along the posterior left pontomedullary junction and adjacent left paramidline posterior medulla, right anterolateral medulla near the olive. Previously noted increased T2-signal lesions particularly in the left half of the medulla extending towards the left posterior paramidline manjeet has decreased in size in the interval. No evidence of acute stroke, significant edema or midline shift at this time. Postcontrast sequences do not demonstrate enhancing lesions. No hydrocephalus, intracranial acute hemorrhage or midline shift. Diffuse age-appropriate parenchymal volume loss is seen. Previously noted multiple enhancing masses in the brain have significantly improved in the interval. There is a less than 1.0 cm oval area of the mild enhancement in the left frontal bone along the superior and posterior aspect. It is better seen on the postcontrast sequence (series 7, image 49) when compared to the precontrast axial T1 sequence. Was noted in the prior MRI brain study but is not correlated with a destructive lytic bony mass in the CT head dated 09/24/2016. It could be related to a vessel STS. [facility] A Service of [facility] RADIOLOGY TEXT RESULTS PATIENT: GIANCARLO MEJIA LOCATION: C5B 560-01 : [birth year] UNIT #: [id number] AGE: [address]: Migue Thomas MD SEX: M ORDER DR: enhancing in this region. Thick slices through the sella with the pituitary gland, pineal region are unremarkable. Degenerative changes are noted in the cervical spine. IMPRESSION 1. Previously noted multiple enhancing brain mass. This most suggestive of metastasis have significantly improved in the current study. 2. The large lesion involving most of the left side of the medulla extending to the posterior left side of the manjeet has significantly improved also. 3. No enhancing new parenchymal brain mass, midline shift or hydrocephalus. 4. No evidence of acute intracranial stroke. Dictated by... Jefry ePmberton M.D. THIS IS AN ELECTRONICALLY VERIFIED REPORT Jefry Pemberton M.D. at 10/24/2016 5:23 PM CPR/stormy TD: 10/22/2016 09:43 JOB #: [id number] MRI CENTER REPORT Page 1 of 1 COPY
--- NOTE | ~2016-10-19 | CR72 ---
[facility] A Service of [facility] & [facility] RADIOLOGY TEXT RESULTS PATIENT: GIANCARLO MEJIA LOCATION: [facility] 560-01 : 41 UNIT #: [id number] AGE: [address]: Elis Reyna MD SEX: M ORDER DR: [id number] [facility] [address]. [place], [place] [address] [id number] E MR#: [id number] Acc #: [id number] NAME: GIANCARLO MEJIA : 1940 SEX: M STUDY DATE/TIME: 10/19/2016 15:31 UNIT: [facility] ROOM: STUDY DESCRIPTION: CR Chest Single View Portable Attending Physician: Eloy Morel M.D. Ordering Physician: Eloy Morel M.D. Primary Care Physician: Jon Damon M.D. MEDICAL IMAGING REPORT This report is preliminary unless electronic signature is present EXAM Portable chest, 10/19. INDICATION Dizziness today. History of lung cancer, coronary artery disease. FINDINGS AP portable chest compared with 09/24/16. Cardiac and mediastinal contours are within normal limits. Patient is status post CABG. There is emphysema. There is a well positioned right side marlee-cath with the tip in the SVC. There is some chronic scarring in the left base. No pneumothorax. IMPRESSION No acute findings. There is emphysema with chronic left base scarring. Patient is status post CABG. Dictated by... Jon Arevalo Jr., M.D. THIS IS AN ELECTRONICALLY VERIFIED REPORT Jon Arevalo Jr., M.D. at 10/19/2016 9:43 PM WESTON/jacey TD: 10/19/2016 17:26 JOB #: [id number] MEDICAL IMAGING REPORT Page 1 of 1 COPY
--- NOTE | ~2016-10-19 | EKG ---
PATIENT: GIANCARLO MEJIA UNIT #: [id number] Ventricular Rate: 54 BPM Atrial Rate: 54 BPM P-R Interval: 174 ms QRS Duration: 86 ms Q-T Interval: 414 ms QTC Calculation(Bezet): 392 ms P [place]: 78 degrees Calculated R [place]: 55 degrees Calculated T [place]: 99 degrees Diagnosis Line: Sinus bradycardia Diagnosis Line: Otherwise normal ECG Diagnosis Line: When compared with ECG of 24-SEP-2016 10:54, Diagnosis Line: No significant change was found Diagnosis Line: Confirmed by CODY BRITO MD ([id number]) on Diagnosis Line: 10/22/2016 3:15:07 PM INTERPRETING MD: ALISHA ESPINOZA
--- NOTE | ~2016-10-19 | DS ---
Unit #: [id number] #: [id number] Patient: GIANCARLO MEJIA [id number] [address] [id number] I MR#: [id number] NAME: GIANCARLO MEJIA ROOM: 560 Age: 76 Sex: M Admission Date: 10/19/2016 : 1940 Discharge Date: 10/21/2016 Attending Physician: Migue Thomas M.D. Primary Care Physician: Jon Damon M.D. DISCHARGE SUMMARY REASON FOR ADMISSION Syncopal episode. HISTORY OF PRESENT ILLNESS/HOSPITAL COURSE The patient is a 76-year-old male with underlying history of non-small cell lung carcinoma with brain metastatic disease, dementia, diabetes, coronary artery disease, hypertension, ongoing tobacco abuse, colon cancer in the past, status post colectomy who presented secondary to syncopal episode. He was admitted and underwent CT noncontrast performed in the emergency room and did not show any acute process. MRI was performed, results are currently pending. He was also evaluated by oncology services. His routine laboratory studies did show initially his creatinine had to be 0.8, concerning for possible underlying dehydration clinically and he did receive IV fluids through hospital course. At this point in time, he has been asymptomatic since he has been here in the hospital. His MRI report is currently pending but this can be followed as an outpatient. He otherwise feels well and from a medical standpoint he is clinically stable to be discharged from the hospital. He will followup with Dr. Mendes as previously scheduled. For ongoing care his home medications remain unchanged. FINAL DISCHARGE DIAGNOSIS 1. Syncopal episode likely secondary to metastatic disease. 2. Metastatic non-small cell lung carcinoma. 3. Frequent falls. 4. Dementia likely multifactorial. 5. Diabetes. 6. Coronary artery disease. 7. Colon carcinoma. In the past, status post colectomy. 8. Hypertension. 9. Hyperlipidemia. 10. Ongoing tobacco abuse. DISCHARGE MEDICATIONS 1. Dexamethasone as prescribed by Dr. Mendes. 2. Metformin 500 mg p.o. b.i.d. 3. Zofran 4 mg p.o. q.4 p.r.n. 4. Diflucan 100 mg p.o. every other day. 5. Klonopin 1 mg p.o. b.i.d. p.r.n. 6. Tenormin 25 mg p.o. daily. 7. Digoxin 0.25 mg p.o. daily. Unit #: [id number] #: [id number] Patient: GIANCARLO MEJIA 8. Aricept 10 mg p.o. daily. 9. Lipitor 40 mg p.o. q.h.s. 10. Zantac 150 mg p.o. b.i.d. 11. Multivitamin daily. 12. Aspirin 81 mg p.o. daily. 13. Plavix 75 mg p.o. daily. DISCHARGE CONDITION Stable. DISCHARGE DISPOSITION Home. OVERALL LONG-TERM PROGNOSIS Poor. CHANCE OF READMISSION High. Dictated by... Migue Thomas M.D. IVRIN/miri TD: 10/21/2016 11:25 JOB #: [id number] DISCHARGE SUMMARY Page 1 of 1 X Migue Thomas MD X DISCHARGE SUMMARY
--- NOTE | ~2016-10-19 | CT52 ---
[facility] A Service of [facility] RADIOLOGY TEXT RESULTS PATIENT: GIANCARLO MEJIA LOCATION: [facility] [address] : 41 UNIT #: [id number] AGE: [address]: Elis Reyna MD SEX: M ORDER DR: [id number] [place], [place] [address] [id number] E MR#: [id number] Acc #: [id number] NAME: GIANCARLO MEJIA : 1940 SEX: M STUDY DATE/TIME: 10/19/2016 15:56 UNIT: [facility] ROOM: STUDY DESCRIPTION: CT Cervical Spine Wo Cont Attending Physician: Eloy Morel M.D. Ordering Physician: Eloy Morel M.D. Primary Care Physician: Jon Damon M.D. MEDICAL IMAGING REPORT This report is preliminary unless electronic signature is present EXAM Cervical spine CT, 10/19. INDICATION Multiple falls this week with multiple syncopal episodes. Dizziness. Posterior neck pain since fall this morning. TECHNIQUE Axial images were obtained through the cervical spine without contrast. Multiplanar reformats were obtained. COMPARISON Comparison made with 09/24/16. This CT exam was performed with one or more of the following radiation dose reduction techniques: automatic exposure control, adjustment of mA and/or kV according to patient size, and iterative reconstruction. FINDINGS No acute fractures are identified. Redemonstrated is fairly extensive multilevel degenerative disc disease and facet arthropathy. Alignment is stable. Note is also made of atherosclerotic disease. IMPRESSION Stable appearance of extensive degenerative disease. No acute fractures. Dictated by... Jon Arevalo Jr., M.D. THIS IS AN ELECTRONICALLY VERIFIED REPORT [facility] A Service of [facility] RADIOLOGY TEXT RESULTS PATIENT: GIANCARLO MEJIA LOCATION: [facility] [address] : 41 UNIT #: [id number] AGE: [address]: Elis Reyna MD SEX: M ORDER DR: Jon Arevalo Jr., M.D. at 10/19/2016 9:44 PM WESTON/jacey TD: 10/19/2016 18:04 JOB #: [id number] MEDICAL IMAGING REPORT Page 1 of 1 COPY
--- NOTE | ~2016-10-19 | CT71 ---
[facility] A Service of [facility] & [facility] RADIOLOGY TEXT RESULTS PATIENT: GIANCARLO MEJIA LOCATION: [facility] 560-01 : 41 UNIT #: [id number] AGE: [address]: Elias Archuleta MD SEX: M ORDER DR: [id number] [facility] [address] [place], [place] [address] [id number] E MR#: [id number] Acc #: [id number] NAME: GIANCARLO MEJIA : 1940 SEX: M STUDY DATE/TIME: 10/19/2016 15:49 UNIT: [facility] ROOM: STUDY DESCRIPTION: CT Head Wo Contrast Attending Physician: Eloy Morel M.D. Ordering Physician: Eloy Morel M.D. Primary Care Physician: Jon Damon M.D. MEDICAL IMAGING REPORT This report is preliminary unless electronic signature is present EXAM Head CT without contrast, 10/19/16. HISTORY Multiple syncopal episodes and falls over the past week, hitting head multiple times, dizziness. Headache and posterior neck pain beginning this morning, diabetes and hypertension. FINDINGS Multiple axial images were obtained from the skull base to vertex without intravenous contrast administration. This CT exam was performed with one or more of the following radiation dose reduction techniques: automatic exposure control, adjustment of mA and/or kV according to patient size, and iterative reconstruction. The ventricles are normal in size, shape and position. There is no midline shift. There is no mass or mass effect, hemorrhage or acute infarct. Visualized paranasal sinuses are clear. Note is made that MRI of the brain dated 07/09/16 performed with contrast demonstrated multiple metastatic lesions to the brain. Detection of metastatic lesions is severely limited on today's examination due to the lack of intravenous contrast. If this is of clinical concern, consider correlation with MRI of the brain with contrast. IMPRESSION Negative noncontrast head CT. Note is made that brain MRI dated 07/09/16 demonstrated multiple metastatic lesions within the brain. These are not visualized on today's exam possibly due to the lack of intravenous contrast. If this is of clinical concern, consider nonemergent correlation with brain MRI with contrast. Dictated by... [facility]. [facility] A Service of [facility] & [facility] RADIOLOGY TEXT RESULTS PATIENT: GIANCARLO MEJIA LOCATION: C5B 560-01 : 41 UNIT #: [id number] AGE: [address]: Elias Archuleta MD SEX: M ORDER DR: Jason Villarreal M.D. THIS IS AN ELECTRONICALLY VERIFIED REPORT Jason Villarreal M.D. at 10/20/2016 2:13 PM CONCEPCION/jacey TD: 10/19/2016 17:54 JOB #: [id number] MEDICAL IMAGING REPORT Page 1 of 1 COPY
[2016-10-19 16:02] LABS: BASOPHIL# 0.1 X10e3 (0-0.3); BASOPHIL% 0.9 % (0-2.5); EOSINOPHIL% 0.4 % (0.0-7.0); HEMATOCRIT 37.4 % (38.0-50.0); HEMOGLOBIN 12.3 gm/dL (13.0-16.0); LYMPHOCYTE# 2.6 X10e3 (1.0-3.5); LYMPHOCYTE% 23.9 % (17.0-45.0); MEAN CELL VOLUME 101.3 FL (83-96); MEAN CORPUSCULAR HEMOGLOBIN 33.2 PG (28-34); MEAN CORPUSCULAR HGB CONC 32.8 g/dL (30-36); MEAN PLATELET VOLUME 8.3 FL (6.5-11.5); MONOCYTE# 0.8 X10e3 (0-1.0); MONOCYTE% 7.5 % (3.0-12.0); NEUTROPHIL# 7.3 X10e3 (1.5-7.1); NEUTROPHIL% 67.3 % (40-75); PLATELET COUNT 193 X10e3 (140-420); RED BLOOD COUNT 3.69 X10e (3.90-5.60); RED CELL DISTRIBUTION WIDTH 15.9 % (11.0-15.5); WHITE BLOOD COUNT 10.9 X10e3 (4.0-10.5)
[2016-10-19 16:03] LABS: DIFF IND NO
[2016-10-19 16:45] LABS: ALBUMIN SERUM 3.4 g/dL (3.5-5.0); BILIRUBIN, DIRECT 0.2 mg/dL (0.0-0.2); BILIRUBIN,INDIRECT 0.4 mg/dL (0.0-0.9); BILIRUBIN,TOTAL 0.6 mg/dL (0.2-2.0); BUN/CREATININE RATIO 28.75; CALCIUM SERUM 9.3 mg/dL (8.4-10.2); CREATININE SERUM 0.8 mg/dL (0.6-1.4); DIGOXIN (LANOXIN) 0.4 ng/ml (1.0-2.0); GLOM FILT RATE Estimated 87.4 mL/min (>60); POTASSIUM 3.9 mmol/L (3.5-5.1); PROTEIN TOTAL SERUM 6.1 g/dL (6.0-8.3)
[2016-10-19] MEDS ORDERED: DIFLUCAN100 MG PO (17:05)
[2016-10-19] MEDS ORDERED: ONDANSETRON HCL4 M1 PO (17:06)
[2016-10-19] MEDS ORDERED: DONEPEZIL HCL10 MG PO (17:06)
[2016-10-19] MEDS ORDERED: TENORMIN25 MG PO (17:06)
[2016-10-19] MEDS ORDERED: CLOPIDOGREL BIS75 MG PO (17:07)
[2016-10-19] MEDS ORDERED: DIGOX250 MCG PO (17:07)
[2016-10-19] MEDS ORDERED: ACID CONTROL150 M1 PO (17:08)
[2016-10-19] MEDS ORDERED: ASPIRIN81 MG PO (17:08)
[2016-10-19] MEDS ORDERED: ALLERGY RELIEF10 M6 PO (17:09)
[2016-10-19] MEDS ORDERED: METFORMIN HCL500 M3 PO (17:09)
[2016-10-19] MEDS ORDERED: DEXAMETHASONE4 MG PO (17:10)
[2016-10-19] MEDS ORDERED: KLONOPIN1 MG PO (17:11)
[2016-10-19] MEDS ORDERED: LIPITOR40 MG PO (17:11)
[2016-10-19] MEDS ORDERED: CENTRUM COMPLE1 EACH PO (17:12)
[2016-10-21] MEDS ORDERED: MULTI VITAMIN1 EACH PO (12:52)
== END 2016-10-21 13:47 | disposition home or self-care (01) ==
LOC: CED 14:42 → C5B 17:35 → CEDOF 17:35 → C5B 21:43
PROVIDERS: Emergency Medicine
DX: R55 Syncope and collapse (principal); C34.90 Malignant neoplasm of unspecified part of unspecified bronchus or lung; C79.31 Secondary malignant neoplasm of brain; R29.6 Repeated falls; F03.90 Unspecified dementia, unspecified severity, without behavioral disturbance, psychotic disturbance, mood disturbance, and anxiety; I25.10 Atherosclerotic heart disease of native coronary artery without angina pectoris; I10 Essential (primary) hypertension; E78.5 Hyperlipidemia, unspecified; Z85.038 Personal history of other malignant neoplasm of large intestine; Z90.49 Acquired absence of other specified parts of digestive tract; F17.200 Nicotine dependence, unspecified, uncomplicated; Z95.1 Presence of aortocoronary bypass graft; Z80.1 Family history of malignant neoplasm of trachea, bronchus and lung; Z79.84 Long term (current) use of oral hypoglycemic drugs; Z79.82 Long term (current) use of aspirin; Z79.899 Other long term (current) drug therapy
CPT/HCPCS: 70450; 70553; 71010; 71100; 72125; 80048; 80076; 80162; 82533; 82947; 85025; 85610; 93005; 97163; 99285; A9577; G0378; G8978-GP; G8979-GP; G8980-GP; J1815

== ENCOUNTER → 2016-10-29 | Outpatient (CLI) | payer MEDICARE, OTHER ==
[~2016-10-29] MED LIST changes: +ACID CONTROL150 M1 PO; +ALLERGY RELIEF10 M6 PO; +ASPIRIN81 MG PO; +CENTRUM COMPLE1 EACH PO; +CLOPIDOGREL BIS75 MG PO; +DEXAMETHASONE4 MG PO; +DIFLUCAN100 MG PO; +LORTAB 10-3251 EACH PO; +MEGACE ES625 MG/5 M PO; +METFORMIN HCL500 M3 PO; +MULTI VITAMIN1 EACH PO; +ONDANSETRON HCL4 M1 PO; +PREDNISONE2.5 MG PO; +PREDNISONE5 MG PO; +TENORMIN25 MG PO; +TYLENOL325 M1 PO
--- NOTE | ~2016-10-29 | CT5 ---
[facility] A Service [facility] RADIOLOGY TEXT RESULTS PATIENT: GIANCARLO MEJIA LOCATION: [facility] : 41 UNIT #: [id number] AGE: [address]: Hossein Mendes MD SEX: M ORDER DR: [id number] [facility]. [place], [place] [address] [id number] O MR#: [id number] Acc #: [id number] NAME: GIANCARLO MEJIA : 1940 SEX: M STUDY DATE/TIME: 10/29/2016 13:19 UNIT: [facility] ROOM: STUDY DESCRIPTION: CT Abdomen W Cont Attending Physician: Hossein Mendes M.D. Referring Physician: Hossein Mendes M.D. Ordering Physician: Hossein Mendes M.D. Primary Care Physician: Jon Damon M.D. MEDICAL IMAGING REPORT This report is preliminary unless electronic signature is present EXAM CT abdomen with contrast INDICATION Restaging lung cancer. Observation for metastatic disease. PROCEDURE Contrast-enhanced CT of the abdomen. This CT exam was performed with one or more of the following radiation dose reduction techniques: automatic exposure control, adjustment of mA and/or kV according to patient size, and iterative reconstruction. COMPARISON 09/16/2016 FINDINGS Refer to separately dictated chest CT for thoracic findings. No liver or splenic lesion. The kidneys, gallbladder, bowel loops unremarkable. The right adrenal lesion is increased in size now measuring 3.7 x 2.4 cm, previously measuring up to 3.0 cm. The left adrenal gland is unremarkable. Small cystic lesion in the uncinate process of the pancreas measures approximately 1.4 x 0.6 cm and is unchanged. No new or enlarging abdominal adenopathy. Mild aneurysmal dilation infrarenal aorta up to 3.2 cm. No aggressive appearing bone lesion. IMPRESSION Interval progression of disease. The right adrenal metastasis is larger than on the prior. There is no evidence for new metastatic disease in the abdomen. Dictated by... [facility] A Service [facility] RADIOLOGY TEXT RESULTS PATIENT: GIANCRALO MEJIA LOCATION: [facility] : 41 UNIT #: [id number] AGE: [address]: Hossein Mendes MD SEX: M ORDER DR: Zaire Aguilar M.D. THIS IS AN ELECTRONICALLY VERIFIED REPORT Zaire Aguilar M.D. at 10/30/2016 2:29 PM [place] TD: 10/29/2016 21:07 JOB #: [id number] MEDICAL IMAGING REPORT Page 1 of 1 COPY
--- NOTE | ~2016-10-29 | CT55 ---
[facility] A Service of [facility] RADIOLOGY TEXT RESULTS PATIENT: GIANCARLO MEJIA LOCATION: [facility] : [birth year] UNIT #: [id number] AGE: [address]: Hossein Mendes MD SEX: M ORDER DR: [id number] [facility] [address] [facility]. [place], [place] [address] [id number] O MR#: [id number] [facility] #: [id number] NAME: GIANCARLO MEJIA : 1940 SEX: M STUDY DATE/TIME: 10/29/2016 13:19 UNIT: [facility] ROOM: STUDY DESCRIPTION: CT Chest W Con Attending Physician: Hossein Mendes M.D. Referring Physician: Hossein Mendes M.D. Ordering Physician: Hossein Mendes M.D. Primary Care Physician: Jon Damon M.D. MEDICAL IMAGING REPORT This report is preliminary unless electronic signature is present EXAM CT chest with contrast. INDICATIONS Lung cancer restaging. Observation for metastatic disease. PROCEDURE Contrast-enhanced CT of the chest. This CT exam was performed with one or more of the following radiation dose reduction techniques: automatic exposure control, adjustment of mA and/or kV according to patient size, and iterative reconstruction. COMPARISON 09/16/2016 FINDINGS The right upper lobe nodule measures 1.4 cm and is not significantly changed from the prior. Upper lobe centrilobular emphysema. No new nodule. There is linear scarring in the left lung base. No pleural fluid or pneumothorax. Redemonstration of some prominent mediastinal lymph nodes. A right paratracheal node measures 1.6 cm in short axis dimension and is not significantly changed. There is some soft tissue thickening around the right upper lobe bronchus that is also stable. Coronary artery calcification. No aggressive-appearing bone lesion. IMPRESSION 1. Stable size of the right upper lobe nodule. No new nodules. 2. Stable mildly prominent mediastinal and right hilar adenopathy and soft tissue. Dictated by... Zaire Aguilar M.D. [facility] A Service of [facility] RADIOLOGY TEXT RESULTS PATIENT: GIANCARLO MEJIA LOCATION: [facility] : [birth year] UNIT #: [id number] AGE: [address]: Hossein Mendes MD SEX: M ORDER DR: THIS IS AN ELECTRONICALLY VERIFIED REPORT Zaire Aguilar M.D. at 10/30/2016 2:29 PM Aj TD: 10/29/2016 21:04 JOB #: [id number] MEDICAL IMAGING REPORT Page 1 of 1 COPY
== END | disposition home or self-care (01) ==
LOC: CCAT 12:06
DX: C79.71 Secondary malignant neoplasm of right adrenal gland (principal); C79.31 Secondary malignant neoplasm of brain; C34.11 Malignant neoplasm of upper lobe, right bronchus or lung; R91.1 Solitary pulmonary nodule
CPT/HCPCS: 71260; 74160; Q9967

== ENCOUNTER 2016-11-20 16:32 | Observation (INO) | payer MEDICARE, OTHER ==
--- NOTE | ~2016-11-20 | CO ---
Unit #: [id number] #: [id number] Patient: GIANCARLO MEJIA [id number] [address] [address] [id number] I MR#: [id number] NAME: GIANCARLO MEJIA ROOM: 310 Age: 76 Sex: M Admission Date: 11/20/2016 : 1940 Attending Physician: Hossein Mendes M.D. Primary Care Physician: Jon Damon M.D. CONSULTATION REPORT CHIEF COMPLAINT Diarrhea and abdominal pain. HISTORY OF PRESENT ILLNESS 76-year-old with history of metastatic lung cancer, colon cancer, admitted because of diarrhea and abdominal pain. According to him, he had chemotherapy two days prior to the admission. Since then, he had severe weakness. He is not able to eat. He has nausea, vomiting and severe diarrhea, mostly watery. Whenever he eats, he has immediately diarrhea. He also has dizziness, no syncope. He is complaining of back pain which he had chronically. He also complains of generalized abdominal pain, currently 5/10. PAST MEDICAL HISTORY 1. History of metastatic non-small cell lung cancer, metastases to his bone. 2. History of colon cancer, status post colectomy. 3. Syncope. 4. Frequent falls. 5. Dementia, likely multifactorial. 6. Coronary artery disease. 7. Hypertension. 8. Hyperlipidemia. 9. Ongoing smoking. 10. Marijuana abuse. 11. Diabetes mellitus type 2. PAST SURGICAL HISTORY 1. History of partial colectomy. 2. Coronary artery bypass grafting. 3. Cataract surgery. 4. Port placement. SOCIAL HISTORY Lives with . Continues to smoke one to one and a half packs of cigarettes per day. Walks with a walker. Code status is DNR. According to his family, he is using marijuana recently. No alcohol. FAMILY HISTORY Positive for mother having lung cancer. ALLERGIES None. Unit #: [id number] #: [id number] Patient: GIANCARLO MEJIA CURRENT HOME MEDICATIONS 1. Donepezil 10 mg p.o. daily. 2. Zofran 4 mg q.4 p.r.n. 3. Tenormin 25 daily. 4. Digoxin 250 mcg p.o. daily. 5. Plavix 75 daily. 6. Ranitidine 150 p.o. b.i.d. 7. Aspirin 81 daily. 8. Metformin 500 p.o. b.i.d. 9. Klonopin 1 mg p.o. b.i.d. 10. Lipitor 40 daily. 11. Centrum, one tablet p.o. daily. 12. Multivitamin, one tablet daily. 13. Aldactone 75 p.o. every other day. 14. Aspirin 81 daily. 15. Tylenol 650 p.o. b.i.d. 16. Megace 1100 mg p.o. daily. 17. Lortab 10 mg four times daily p.r.n. REVIEW OF SYSTEMS No headache, no visual changes. Has generalized weakness. No focal weakness, numbness, tingling. No syncope. Reviewed twelve point system with him which are negative except as in HPI. PHYSICAL EXAMINATION GENERAL: 76-year-old lying in bed, alert, oriented x2 with mild confusion. HEENT: Pupils equal, react to light and accommodation. Dry mucosa present. NECK: Supple. HEART: S1, S2 heard. Regular rhythm, no murmurs. LUNGS: Clear to auscultation. No crackles, no rhonchi. ABDOMEN: Soft, nontender. No hepatosplenomegaly, nondistended. EXTREMITIES: No pedal edema. SKIN: Stage 2 decubitus ulcer at the lumbar area, present on admission. NEUROLOGICAL: The patient is alert and oriented x3 with mild occasional confusion and hard of hearing. VITAL SIGNS: Temperature 98.5, pulse 106, respirations 16, blood pressure 137/87, 98% on room air saturations. DIAGNOSTIC STUDIES LABORATORY DATA: Unavailable because patient is admitted directly from Dr. Mendes's office. ASSESSMENT AND PLAN 76-year-old admitted because of abdominal pain and diarrhea. 1. Abdominal pain and diarrhea, most likely from chemotherapy which he received two days prior to the admission: I am going to give him IV fluids, IV Dilaudid for pain and Lortab for p.r.n. pain. I am going to check CBC, CMP and magnesium stat. Also, check Stool for C. diff to rule out C. diff infection. 2. Generalized weakness, most likely from dehydration and poor p.o. intake which he is not able to eat since two days since his chemotherapy, according to the family. 3. Stage 4 lung cancer with metastases to the bone with severe back pain, chronic. Continue with IV Dilaudid. 4. Frequent falls: I am going to ask PT/OT to see once stable. 5. Dizziness, most likely from generalized weakness and dehydration: Unit #: [id number] #: [id number] Patient: GIANCARLO MEJIA Monitor. I am going to check orthostatic vitals. 6. Hypertension, currently well controlled: Continue current medications. 7. Change in mental status with mild confusion secondary to dementia: Also could be from dehydration and metabolic encephalopathy. 8. Smoking, advised to quit: Patient wants to go out to smoke. He does not want nicotine patch. Please note that patient is directly admitted from Dr. Mendes's office. Thank you for this consultation. Dictated by... Farheen Alba M.D. SCOTT/ammy TD: 11/21/2016 06:40 JOB #: [id number] CONSULTATION REPORT Page 1 of 1 X Farheen Alba MD X CONSULTATION REPORT
--- NOTE | ~2016-11-20 | HP ---
Unit #: [id number] #: [id number] Patient: GIANCARLO MEJIA [id number] [address] [address] [id number] I MR#: [id number] NAME: GIANCARLO MEJIA ROOM: 310 Age: 76 Sex: M Admission Date: 11/20/2016 : 1940 Attending Physician: Hossein Mendes M.D. Primary Care Physician: Jon Damon M.D. HISTORY AND PHYSICAL CHIEF COMPLAINT Admitted from the office with watery diarrhea, dehydration, weakness. HISTORY OF PRESENT ILLNESS Mr. Mejia was brought in by his family on an emergent basis on 11/20/2016. He reported that after he had his first cycle of Opdivo treatment, he started having watery diarrhea with incontinence, weakness, including a fall with injury to his right ear. His appetite had been significantly decreased and he had just eaten a food bites of food on the morning in which he was evaluated. In the office, he was found to be tachycardic. Blood pressure was slightly lower than his usual normal and he was found to be extremely weak and admission recommended. PAST HISTORY 1. Coronary artery disease with angioplasty and stent placement in 2004, followed by bypass surgery in 2007. 2. Type 2 diabetes mellitus. 3. Hypertension. 4. Alzheimer's type dementia. 5. Colon cancer diagnosed in 2011, undergoing bowel resection but did not require adjuvant therapy. 6. Lung cancer picked up by lung cancer screening CT scan on June 15, 2016, with a 2.3 x 2.3 nodule with irregular margin in the central aspect of the right upper lobe near the hilum with multiple enlarged lymph nodes. He, thereafter, underwent a PET CT scan with the findings of nodules in the paratracheal gland and right adrenal metastases. PET CT scan also showed hypermetabolic right hilar mediastinal lymphadenopathy. CT guided biopsy confirmed metastatic adenocarcinoma with PD-L1 staining of 20%. MRI of the brain showed multiple brain metastases. Underwent whole brain radiation therapy. Had one cycle of chemotherapy which he tolerated poorly and, thereafter, started Opdivo second line therapy. PAST SURGICAL HISTORY 1. Colon resection. 2. Coronary bypass surgery. FAMILY HISTORY Gastrointestinal cancer in the sister and mother with lung cancer. SOCIAL HISTORY 50 pack-year history of smoking. Continues to smoke a few cigarettes. Doesn't drink any alcohol. He is , lives with his and has two daughters. Unit #: [id number] #: [id number] Patient: GIANCARLO MEJIA REVIEW OF SYSTEMS 14-point review was taken. CONSTITUTIONAL: As discussed above. EYES: Negative. EARS, NOSE, MOUTH, THROAT: Some hardness of hearing. CARDIOVASCULAR: Negative. RESPIRATORY: Shortness of breathing without any recent change. No hemoptysis. GASTROINTESTINAL: Watery diarrhea with some mucus. No abdominal pain. He has been incontinence and has to use Depends. No melena or hematochezia. GENITOURINARY: Negative. NEUROLOGIC: Mild confusion, according to his . No seizures. He has been having difficulty walking. MUSCULOSKELETAL: Weakness with tendency to fall and has fallen several times. PSYCHIATRIC: Negative. ALLERGIC/LYMPHATIC: Negative. SKIN: Skin tears and bruises from his falls. PHYSICAL EXAMINATION GENERAL: He is an elderly man who looks to have lost significant recent weight. Performance is 2 to 3. VITAL SIGNS: Pulse ox is 99, pulse rate is 110, respiratory rate 18, blood pressure 130/70, temperature 36.9. BMI is 21.5. HEENT: Pupils are equal, react well to light. Mucous membranes are dry. Mild pallor, no icterus, lymphadenopathy, JVD or thyromegaly. CARDIOVASCULAR SYSTEM: First and second heart sounds are heard and regular with mild tachycardia. LUNGS: Chest expansion was symmetrical. Bilateral equal normal air entry with normal breath sounds. ABDOMEN: Soft, nontender. Bowel sounds are present. No organomegaly. EXTREMITIES: Warm with good pulses. No edema, cyanosis or clubbing. SKIN: Multiple scattered ecchymoses related to his multiple falls as well as a bruise over his right ear. PSYCHIATRIC: Normal affect. DIAGNOSTIC STUDIES LABORATORY: Pending. ASSESSMENT AND PLAN Mr. Giancarlo Mejia is a 76-year-old with a history of metastatic non-small cell lung cancer, type 2 diabetes, coronary artery disease, who has had cycle 9 treatment of Opdivo and, thereafter, had profuse diarrhea with incontinence, weakness and dehydration. He also has right adrenal metastasis which has been treated with radiation therapy in the past but he may also have hypoadrenalism. Plan is to admit him in observation status, check a CBC, electrolytes and chemistries, start him on IV fluids with normal saline 125 mL/hour based upon electrolyte status. Will check a stool for Clostridium difficile toxin as well as random cortisol level. I will consult [facility] to consult him in view of his coronary artery disease and type 2 diabetes mellitus for adjustment of medications. Based upon his blood counts, he will be started on Lovenox for DVT prophylaxis. Unit #: [id number] #: [id number] Patient: GIANCARLO MEJIA Dictated by Susan Hewitt/ammy TD: 11/21/2016 12:56 JOB #: [id number] HISTORY AND PHYSICAL Page 1 of 1 X Hossein Mendes MD X HISTORY AND PHYSICAL
--- NOTE | ~2016-11-20 | DS ---
Unit #: [id number] #: [id number] Patient: GIANCARLO MEJIA [id number] [address] [address] [id number] I MR#: [id number] NAME: GIANCARLO MEJIA ROOM: 310 Age: 76 Sex: M Admission Date: 11/20/2016 : 1940 Discharge Date: 11/23/2016 Attending Physician: Hossein Mendes M.D. Primary Care Physician: Jon Damon M.D. DISCHARGE SUMMARY PRINCIPAL DIAGNOSES 1. Diarrhea, which resolved during admission. 2. Dehydration. 3. Weakness secondary to one and two and four. 4. Metastatic lky-tnyde-vjuz lung cancer. 5. History of brain metastasis. 6. Alzheimer dementia with worsening of confusional state during hospital stay. 7. 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 8. Type 2 diabetes mellitus. 9. History of coronary artery disease. 10. Hypertension. 11. Panic attacks. DISCHARGE MEDICATIONS 1. Prednisone 4 mg in the morning and 2.5 mg at 3 a.m. 2. Klonopin 1 mg p.o. b.i.d. p.r.n. 3. Metformin 500 mg p.o. b.i.d. 4. Zofran 4 mg q.4 h. p.r.n. 5. Megace suspension 110 mg daily. 6. Klonopin 1 mg p.o. b.i.d. p.r.n. anxiety. 7. Donepezil 10 mg daily. 8. Ranitidine 150 mg p.o. b.i.d. 9. Folic acid with multivitamin daily. 10. Aspirin 81 mg daily. 11. Plavix 75 mg daily. 12. Hydrocodone 10/325 mg 1-2 tablets q.4 h. p.r.n. 13. He will discontinue spironolactone, digoxin, atorvastatin and Tenormin. FOLLOWUP He will follow up in the office as an outpatient on 11/27/2016 as previously scheduled. HOSPITAL COURSE Briefly, Mr. Mejia was admitted to the hospital with watery diarrhea, dehydration and weakness. On admission, he was treated with IV fluids and corticotropin stimulation test which all showed improvement in baseline steroid levels were low. Cortisol level was low and he was started on prednisone. Multiple pulse doses of steroids were given. During the hospital stay he had no further diarrhea. Stools for c-diff toxin could not be done because of absence of diarrhea. Medications will be evaluated. Because of bradycardia digoxin and Tenormin were both discontinued. Digoxin level was 0.7. He remained quite confused during Unit #: [id number] #: [id number] Patient: GIANCARLO MEJIA hospital stay, probably from the combination of baseline Alzheimer dementia coupled with radiation therapy for his brain metastasis and weakness. He will be discharged home to follow up as an outpatient. He remained a do not resuscitate during hospital stay as per previous wishes. Dictated by... Susan Hewitt/glenda TD: 11/23/2016 13:43 JOB #: [id number] DISCHARGE SUMMARY Page 1 of 1 X Hossein Mendes MD X DISCHARGE SUMMARY
--- NOTE | ~2016-11-20 | A ---
[facility] Nutrition Therapy DATE: 11/21/16 Patient: GIANCARLO MEJIA Physician: DORY Address: [address] [facility] Room/Bed: [address] [place] [address], Zip: [place] [address] Admit Date: 11/20/16 Date of : [birth year] Height: Weight: 164 74.6 NUTRITIONAL ASSESSMENT: REASON: 4 POINTS NUTRITION SCREEN RE: 15# WEIGHT LOSS AND EATING POORLY, ALSO FOR CONSULT: WEIGHT LOSS R/T CANCER 76 yo male admitted for lung cancer, diarrhea PMH: Stage IV lung cancer s/p chemotherapy, CAD, DM, h/o colon cancer s/p colectomy, HLD, smoker, dementia Anthropometrics: Ht: 6'2" Wt: 74.6 kg BMI: 21.1 IBW: 86.4 kg, 86% IBW Labs: K+ 3.4 Cl- 115 Alb 3.1 Accuchecks 117 Meds: Protonix, lipitor, novolog, pepcid, zofran, therapeutic formula, megace I/O & Bowel function: 240/650, last BM 11/20 (diarrhea) Skin Integrity: scab right ear Intact abrasion- right arm/ lower back Edema: none noted Estimated Nutrition Needs: [id number] kcals (30-35 kcals/kg) 111-150 grams protein (1.5-2.0 grams/kg) Diet: Consistent carbohydrate Assessment: Chart reviewed, events noted. 76 yo male admitted for diarrhea, abdominal pain and lung cancer with recent chemotherapy. RD spoke with the pt's family at bedside, as the pt was sleeping, noted to be confused. Pt's family reports that the pt continually loses weight since his cancer Dx, and only consumes Ensure (two per meal), muscle milk, and V8 juice at home. Pt's family states that since his chemotherapy on Friday, he will eat or drink something and immediately has diarrhea. Pt's intake has been minimal due to this. Pt has not consumed any nutrition since admission. Per previous admission nutrition assessment the pt weighed ~174# in August 2016, indicating ~10# weight loss in 2 months (6% body weight loss). RD briefly discussed enteral nutrition as an option if the pt continues to lose weight. Pt's family appreciated the information, and did not specify whether or not this is something that the pt would want. RD discussed various supplements, and the pt favors Ensure over Glucera. RD will also order Magic Cups for the pt, as his family thinks this is a supplement he will like. [facility] Nutrition Therapy DATE: 11/21/16 Patient: GIANCARLO MEJIA Physician: DORY Address: [address] [place] [address] Room/Bed: [address] [place] [address], Zip: [place] [address] Admit Date: 11/20/16 Date of : [birth year] Height: Weight: 164 74.6 Dx: Underweight RT cancer, PMH AEB 6% body weight loss in 2 months, 86% IBW, poor intake reported by the pt's family. Intervention: 1. Ensure 4-6 times daily 2. Magic Cup TID Monitoring, Evaluation and Goals: 1. Oral intake; tolerate >50% of meals and supplements 2. Improve labs; K+, monitor glucose 3. GI; promote regular GI function Recommendations: 1. Continue current diet order, encouraging and assisting the pt with nutritional intake as needed. 2. Ensure 4-6 times daily for Magic Cup TID for supplemental nutrition. 3. If deemed appropriate based on MD discretion and the pt's of care, pt may benefit from enteral nutrition to supplement his PO intake. If ordered by MD, RD recommending nocturnal enteral nutrition to meet ~60% of the pt's estimated nutritional needs with the following regimen: -Start Jevity 1.5 @ 20 mL/hr x 14 hrs (8P-10A). Increase by 10 mL q 7 hrs (twice per night) as tolerated to goal of Jevity 1.5 @ 70 mL/hr x 14 hrs (8P-10A) to provide: 1470 kcals/ 63 grams protein/ 745 mL free H20 Pt is at moderate nutritional risk. RD will follow hospital course per protocol. Respectfully, DENI CASTELLON RD, LD [facility] cc: client file
[~2016-11-20 16:32] MED LIST changes: -LORTAB 10-3251 EACH PO; -MEGACE ES625 MG/5 M PO; -PREDNISONE2.5 MG PO; -PREDNISONE5 MG PO; -TYLENOL325 M1 PO
[2016-11-20] MEDS ORDERED: ASPIRIN81 MG PO (17:54)
[2016-11-20] MEDS ORDERED: ALDACTONE PO (17:54)
[2016-11-20] MEDS ORDERED: MEGACE ES625 MG/5 M PO (17:55)
[2016-11-20] MEDS ORDERED: TYLENOL325 M1 PO (17:55)
[2016-11-20] MEDS ORDERED: LORTAB 10-3251 EACH PO (17:56)
[2016-11-20 18:42] LABS: HEMATOCRIT 37.6 % (38.0-50.0); HEMOGLOBIN 12.2 gm/dL (13.0-16.0); MEAN CELL VOLUME 97.9 FL (83-96); MEAN CORPUSCULAR HEMOGLOBIN 31.8 PG (28-34); MEAN CORPUSCULAR HGB CONC 32.4 g/dL (30-36); MEAN PLATELET VOLUME 8.3 FL (6.5-11.5); RED BLOOD COUNT 3.84 X10e (3.90-5.60); WHITE BLOOD COUNT 8.2 X10e3 (4.0-10.5)
[2016-11-20 18:54] LABS: PROTHROMBIN TIME (PATIENT) 11.1 SECONDS (10.0-11.7)
[2016-11-20 19:26] LABS: ALBUMIN SERUM 3.6 g/dL (3.5-5.0); BILIRUBIN,TOTAL 0.3 mg/dL (0.2-2.0); BUN/CREATININE RATIO 15.55; CALCIUM SERUM 9.4 mg/dL (8.4-10.2); CREATININE SERUM 0.9 mg/dL (0.6-1.4); GLOM FILT RATE Estimated 83.3 mL/min (>60); POTASSIUM 3.5 mmol/L (3.5-5.1); PROTEIN TOTAL SERUM 7.3 g/dL (6.0-8.3)
[2016-11-20 19:49] LABS: THYROID STIMULATING HORMONE 0.89 uIU/ml (0.34-5.60)
[2016-11-20 19:55] LABS: FREE THYROXIN (T4) 0.86 ng/dL (0.58-1.64)
[2016-11-21 06:58] LABS: HEMATOCRIT 34.8 % (38.0-50.0); HEMOGLOBIN 11.5 gm/dL (13.0-16.0); MEAN CELL VOLUME 96.7 FL (83-96); MEAN CORPUSCULAR HGB CONC 33.1 g/dL (30-36); MEAN PLATELET VOLUME 8.6 FL (6.5-11.5); RED BLOOD COUNT 3.6 X10e (3.90-5.60); RED CELL DISTRIBUTION WIDTH 14.2 % (11.0-15.5)
[2016-11-21 07:45] LABS: ALBUMIN SERUM 3.1 g/dL (3.5-5.0); BILIRUBIN,TOTAL 0.3 mg/dL (0.2-2.0); BUN/CREATININE RATIO 18.57; CALCIUM SERUM 8.9 mg/dL (8.4-10.2); CREATININE SERUM 0.7 mg/dL (0.6-1.4); GLOM FILT RATE Estimated 92.4 mL/min (>60); MAGNESIUM 1.7 mg/dL (1.6-3.0); PHOSPHOROUS 3.2 mg/dL (2.5-4.6); POTASSIUM 3.4 mmol/L (3.5-5.1); PROTEIN TOTAL SERUM 6.4 g/dL (6.0-8.3)
[2016-11-22 06:14] LABS: HEMATOCRIT 33.3 % (38.0-50.0); HEMOGLOBIN 10.9 gm/dL (13.0-16.0); MEAN CELL VOLUME 97.1 FL (83-96); MEAN CORPUSCULAR HEMOGLOBIN 31.6 PG (28-34); MEAN CORPUSCULAR HGB CONC 32.6 g/dL (30-36); MEAN PLATELET VOLUME 8.2 FL (6.5-11.5); RED BLOOD COUNT 3.43 X10e (3.90-5.60); RED CELL DISTRIBUTION WIDTH 14.3 % (11.0-15.5); WHITE BLOOD COUNT 6.3 X10e3 (4.0-10.5)
[2016-11-22 06:37] LABS: CALCIUM SERUM 9.3 mg/dL (8.4-10.2); CREATININE SERUM 0.6 mg/dL (0.6-1.4); GLOM FILT RATE Estimated 98.4 mL/min (>60); PHOSPHOROUS 2.9 mg/dL (2.5-4.6); POTASSIUM 4.1 mmol/L (3.5-5.1)
[2016-11-23 07:28] LABS: HEMATOCRIT 31.7 % (38.0-50.0); HEMOGLOBIN 10.5 gm/dL (13.0-16.0); MEAN CORPUSCULAR HEMOGLOBIN 31.8 PG (28-34); MEAN CORPUSCULAR HGB CONC 33.2 g/dL (30-36); MEAN PLATELET VOLUME 8.2 FL (6.5-11.5); RED BLOOD COUNT 3.31 X10e (3.90-5.60); RED CELL DISTRIBUTION WIDTH 14.1 % (11.0-15.5); WHITE BLOOD COUNT 7.8 X10e3 (4.0-10.5)
[2016-11-23 07:57] LABS: CREATININE SERUM 0.7 mg/dL (0.6-1.4); GLOM FILT RATE Estimated 92.4 mL/min (>60); POTASSIUM 3.6 mmol/L (3.5-5.1)
[2016-11-23] MEDS ORDERED: PREDNISONE5 MG PO (09:40)
[2016-11-23] MEDS ORDERED: PREDNISONE2.5 MG PO (09:41)
== END 2016-11-23 10:20 | disposition home or self-care (01) ==
LOC: C3A PCU 16:55 → UNDOADMOB 16:55 → C3A PCU 17:05
PROVIDERS: Internal Medicine Hematology & Oncology
DX: R19.7 Diarrhea, unspecified (principal); E86.0 Dehydration; R53.1 Weakness; C34.90 Malignant neoplasm of unspecified part of unspecified bronchus or lung; C79.51 Secondary malignant neoplasm of bone; C79.31 Secondary malignant neoplasm of brain; Z85.038 Personal history of other malignant neoplasm of large intestine; G30.9 Alzheimer's disease, unspecified; F02.80 Dementia in other diseases classified elsewhere, unspecified severity, without behavioral disturbance, psychotic disturbance, mood disturbance, and anxiety; E27.40 Unspecified adrenocortical insufficiency; E11.9 Type 2 diabetes mellitus without complications; Z79.84 Long term (current) use of oral hypoglycemic drugs; I10 Essential (primary) hypertension; F41.0 Panic disorder [episodic paroxysmal anxiety]; F17.210 Nicotine dependence, cigarettes, uncomplicated; Z79.891 Long term (current) use of opiate analgesic; Z79.82 Long term (current) use of aspirin; Z79.899 Other long term (current) drug therapy; F12.10 Cannabis abuse, uncomplicated; Z98.890 Other specified postprocedural states; Z95.828 Presence of other vascular implants and grafts; I25.10 Atherosclerotic heart disease of native coronary artery without angina pectoris; Z95.5 Presence of coronary angioplasty implant and graft; Z91.81 History of falling
CPT/HCPCS: 80048; 80053; 80162; 82533; 82947; 83735; 84100; 84439; 84443; 84484; 85027; 85610; 96361; 96374; 96376; G0378; J0833; J1720; J1815